=== PATIENT | female | born 1950 | race Caucasian/White ===

== ENCOUNTER → 2019-05-18 | Outpatient (CLI) | payer MEDICARE, MEDICAID, SELFPAY | PROVIDERS: Family Provider Nurse Practitioner Family; Visit Provider Surgery | DX: R10.13 Epigastric pain (principal) | CPT/HCPCS: 78227; A9537 ==

== ENCOUNTER 2019-05-31 14:28 | Outpatient (CLI) | payer MEDICARE, MEDICAID, SELFPAY ==
--- NOTE | 2019-05-31 14:34 | XR_ITS ---
WS: [id number] LATERAL LUMBAR SPINE: 3 view. Lateral radiographs are performed in upright neutral, flexion and extension to the patient's toleranc e. HISTORY: low back pain COMPARISON: 09/26/2007 Posterior lumbar alignment is normal. Moderate disc space narrowing and desiccation at L4-5 and L5-S1 . No fracture. With flexion and extension no instability. No lumbar spine instability. XR/XR lumbar spine f/e only [id number] IMPRESSION:
== END 2019-05-31 14:29 | disposition home or self-care (01) ==
LOC: WPI 14:33
PROVIDERS: Family Provider Nurse Practitioner Family; PCP Nurse Practitioner Family; Referring Provider Nurse Practitioner Family; Visit Provider Licensed Practical Nurse
DX: M54.5 Low back pain (principal)
CPT/HCPCS: 72120

== ENCOUNTER 2019-06-04 06:00 | Outpatient (RCR) | payer MEDICARE, MEDICAID, SELFPAY | END 2019-06-22 23:59 | disposition home or self-care (01) | LOC: WPT 06:00 | PROVIDERS: Family Provider Nurse Practitioner Family; PCP Nurse Practitioner Family; Referring Provider Licensed Practical Nurse; Visit Provider Licensed Practical Nurse | DX: M51.17 Intervertebral disc disorders with radiculopathy, lumbosacral region (principal) | CPT/HCPCS: 97110; 97112; 97140; 97161 ==

== ENCOUNTER → 2019-06-12 10:54 | Outpatient (BNVA) | payer MEDICARE, MEDICAID, SELFPAY | PROVIDERS: Family Provider Nurse Practitioner Family; PCP Nurse Practitioner Family; Referring Provider Licensed Practical Nurse; Visit Provider Psychiatry & Neurology Neurology | DX: G62.9 Polyneuropathy, unspecified (principal) | CPT/HCPCS: 95886; 95909 ==

== ENCOUNTER → 2019-06-18 15:12 | Outpatient (BNVA) | payer MEDICARE, MEDICAID, SELFPAY | PROVIDERS: Family Provider Nurse Practitioner Family; PCP Nurse Practitioner Family; Visit Provider Internal Medicine Rheumatology | DX: M15.4 Erosive (osteo)arthritis (principal) | CPT/HCPCS: 36415; 80053 ==

== ENCOUNTER → 2019-06-19 11:43 | Outpatient (BNVA) | payer MEDICARE, MEDICAID, SELFPAY | PROVIDERS: Family Provider Nurse Practitioner Family; PCP Nurse Practitioner Family; Visit Provider Internal Medicine Rheumatology | DX: M15.4 Erosive (osteo)arthritis (principal) | CPT/HCPCS: 85025 ==

== ENCOUNTER 2019-06-23 06:00 | Outpatient (RCR) | payer MEDICARE, MEDICAID, SELFPAY | END 2019-07-21 23:59 | disposition home or self-care (01) | LOC: WPT 06:00 | PROVIDERS: Family Provider Nurse Practitioner Family; PCP Nurse Practitioner Family; Referring Provider Licensed Practical Nurse; Visit Provider Licensed Practical Nurse | DX: M54.5 Low back pain (principal) | CPT/HCPCS: 97110; 97112 ==

== ENCOUNTER → 2019-07-17 08:57 | Outpatient (BNVA) | payer BC, MEDICAID, SELFPAY | PROVIDERS: Family Provider Nurse Practitioner Family; PCP Nurse Practitioner Family; Visit Provider Internal Medicine Rheumatology | DX: M19.041 Primary osteoarthritis, right hand (principal); M81.0 Age-related osteoporosis without current pathological fracture; M17.11 Unilateral primary osteoarthritis, right knee; Z79.899 Other long term (current) drug therapy; M19.042 Primary osteoarthritis, left hand; M79.7 Fibromyalgia | CPT/HCPCS: 99214 ==

== ENCOUNTER 2019-07-26 10:50 | Outpatient (CLI) | payer MEDICARE, MEDICAID, SELFPAY ==
--- NOTE | 2019-07-26 11:01 | XR_ITS ---
WS: [id number] SCREENING DEXA SCAN [facility] CLINICAL INFORMATION: OSTEOPOROSIS COMPARISON: August 23, 2018 FINDINGS: The L1-L4 bone mineral density measures 0.860 g/cm2. This corresponds to a T score score of -2.7 and Z score of -0.8. Left femoral neck bone mineral density measures 0.750 g/cm2. This corresponds to a T score of -2.0 an d Z score of -0.5. Right femoral neck bone mineral density measures 0.675 g/cm2. This corresponds to a T score -2.6of an d Z score of -1.1. Mean femoral neck bone mineral density measures 0.713 g/cm2. This corresponds to a T score of -2.3 an d Z score of -0.8. XR/XR DEXA axial skeleton* [id number] IMPRESSION: Osteoporosis Patient's FRAX calculated 10 year probability for major osteoporotic fracture i s 23.8 % and osteoporotic hip fracture is 7.3%.
== END 2019-07-26 10:51 | disposition home or self-care (01) ==
LOC: RADWPI 10:57
PROVIDERS: Family Provider Nurse Practitioner Family; PCP Nurse Practitioner Family; Visit Provider Internal Medicine Rheumatology
DX: M51.17 Intervertebral disc disorders with radiculopathy, lumbosacral region (principal); M81.0 Age-related osteoporosis without current pathological fracture
CPT/HCPCS: 77080

== ENCOUNTER → 2019-08-27 11:14 | Outpatient (BNVA) | payer MEDICARE, MEDICAID, SELFPAY | PROVIDERS: Family Provider Nurse Practitioner Family; PCP Nurse Practitioner Family; Visit Provider Internal Medicine Rheumatology | DX: M15.4 Erosive (osteo)arthritis (principal); M81.0 Age-related osteoporosis without current pathological fracture; Z79.899 Other long term (current) drug therapy; Z51.81 Encounter for therapeutic drug level monitoring | CPT/HCPCS: 36415; 80076; 82310; 82565; 85025; 85651; 86140 ==

== ENCOUNTER → 2019-08-27 11:17 | Outpatient (BNVA) | payer MEDICARE, MEDICAID, SELFPAY | PROVIDERS: Family Provider Nurse Practitioner Family; PCP Nurse Practitioner Family; Visit Provider Internal Medicine Rheumatology | DX: M15.4 Erosive (osteo)arthritis (principal); M81.0 Age-related osteoporosis without current pathological fracture; Z51.81 Encounter for therapeutic drug level monitoring | CPT/HCPCS: 85025 ==

== ENCOUNTER → 2019-09-07 13:20 | Outpatient (BNVA) | payer MEDICARE, MEDICAID, SELFPAY | PROVIDERS: Family Provider Nurse Practitioner Family; PCP Nurse Practitioner Family; Referring Provider Specialist; Visit Provider Anesthesiology Pain Medicine | DX: M54.5 Low back pain (principal); G60.8 Other hereditary and idiopathic neuropathies; Z79.891 Long term (current) use of opiate analgesic | CPT/HCPCS: 99204; 99205 ==

== ENCOUNTER → 2019-09-25 11:41 | Outpatient (BNVA) | payer MEDICARE, MEDICAID, SELFPAY | PROVIDERS: Family Provider Nurse Practitioner Family; PCP Nurse Practitioner Family; Visit Provider Nurse Practitioner Family | DX: E53.9 Vitamin B deficiency, unspecified (principal); E53.8 Deficiency of other specified B group vitamins; E55.9 Vitamin D deficiency, unspecified | CPT/HCPCS: 82306; 82607; 82746; 84207 ==

== ENCOUNTER → 2019-11-20 10:06 | Outpatient (BNVA) | payer MEDICARE, SELFPAY | PROVIDERS: Family Provider Nurse Practitioner Family; PCP Nurse Practitioner Family; Visit Provider Nurse Practitioner Family | DX: M25.561 Pain in right knee (principal) | CPT/HCPCS: 73562 ==

== ENCOUNTER → 2020-02-26 11:30 | Outpatient (BNVA) | payer MEDICARE, OTHER, SELFPAY | PROVIDERS: Family Provider Nurse Practitioner Family; PCP Nurse Practitioner Family; Visit Provider Nurse Practitioner Family | DX: M19.011 Primary osteoarthritis, right shoulder (principal) | CPT/HCPCS: 73030 ==

== ENCOUNTER → 2020-03-05 11:42 | Outpatient (BNVA) | payer MEDICARE, OTHER, SELFPAY | PROVIDERS: Family Provider Nurse Practitioner Family; PCP Nurse Practitioner Family; Referring Provider Nurse Practitioner Family; Visit Provider Specialist | DX: M19.011 Primary osteoarthritis, right shoulder (principal); M25.561 Pain in right knee | CPT/HCPCS: 73560; 73565 ==

== ENCOUNTER 2020-03-13 11:28 | Outpatient (CLI) | payer MEDICARE, OTHER, SELFPAY ==
--- NOTE | 2020-03-13 11:45 | MR_ITS ---
WS: [id number] MRI RIGHT KNEE NONCONTRAST TECHNIQUE: Axial PD, coronal PD fat sat, coronal PD, sagittal PD, and sagittal PD fat-sat images obta ined. CLINICAL INFORMATION: M17.11 Unilateral primary osteoarthritis, right knee COMPARISON: None. FINDINGS: Distal quadriceps and patella tendons are intact. Hypertrophic patella. Normal PCL. Mild mucoid degen eration with chronic thinning involving the ACL which appears intact. Chronic thinning of the medial and lateral meniscus worse involving the lateral meniscus with [id number] articulation in the later al joint compartment. Mild subchondral cystic change and degenerative edema in the lateral joint comp artment. Hypertrophic changes along the joint line. Chronic intrasubstance signal abnormality medial meniscus with chronic thinning. Marked chronic thinning of the lateral meniscus with blunting of the anterior horn. No acute appearing meniscal tears. Advanced grade III chondromalacia patella worse involving the lateral patella facet. No significant s ubchondral edema. Normal popliteal fossa. Medial and lateral collateral ligaments appear intact. MR/MR knee RT wo con* [id number] IMPRESSION: 1. Thinning and mucoid degeneration involving the ACL which appears intact. No rmal PCL. 2. Moderate to advanced tricompartment arthritis with [id number] articulatio n in the lateral joint compartment. Marked chronic thinning of the lateral meni scus some of which may be due to postoperative meniscectomy 3. Chronic thinning of the medial meniscus. No acute appearing meniscal tears. 4. Subchondral cystic change with mild degenerative edema involving the latera l joint compartment. 5. Medial and lateral collateral ligaments appear intact. 6. Advanced grade III chondromalacia patella. No subchondral edema. Hypertroph ic patella.
== END 2020-03-13 11:29 | disposition home or self-care (01) ==
LOC: RADSHAW 11:34
PROVIDERS: PCP Nurse Practitioner Family; Visit Provider Specialist
DX: M17.11 Unilateral primary osteoarthritis, right knee (principal); M22.41 Chondromalacia patellae, right knee
CPT/HCPCS: 73721

== ENCOUNTER → 2020-06-17 14:38 | Outpatient (BNVA) | payer MEDICARE, OTHER, SELFPAY | PROVIDERS: PCP Nurse Practitioner Family; Visit Provider Internal Medicine | DX: M81.0 Age-related osteoporosis without current pathological fracture (principal) | CPT/HCPCS: 36415; 80053; 82306; 85025; 99213; 99214 ==

== ENCOUNTER 2020-08-04 13:40 | Outpatient (CLI) | payer MEDICARE, OTHER, SELFPAY ==
[2020-08-04] MEDS: denosumab 60 mg SDV SUBCUT (14:16)
== END 2020-08-04 13:41 | disposition home or self-care (01) ==
LOC: ONCMED 13:43
PROVIDERS: PCP Nurse Practitioner Family; Visit Provider Internal Medicine
DX: M81.0 Age-related osteoporosis without current pathological fracture (principal)
CPT/HCPCS: 96372; J0897

== ENCOUNTER 2021-02-05 10:04 | Outpatient (CLI) | payer MEDICARE, OTHER, SELFPAY ==
[2021-02-05 11:15] LABS: Albumin Level 4.2 g/dL (3.5-5.2); Calcium 8.2 mg/dL (8.5-10.5)
[2021-02-05 11:30] LABS: 25 Hydroxy Vitamin D 33 ng/mL (30-100)
== END 2021-02-05 10:05 | disposition home or self-care (01) ==
LOC: ONCMED 10:07
PROVIDERS: PCP Nurse Practitioner Family; Referring Provider Internal Medicine; Visit Provider Internal Medicine
DX: M81.0 Age-related osteoporosis without current pathological fracture (principal); Z79.899 Other long term (current) drug therapy
CPT/HCPCS: 36415; 82040; 82306; 82310; 82565

== ENCOUNTER 2021-02-11 06:00 | Outpatient (CLI) | payer MEDICARE, OTHER, SELFPAY ==
[2021-02-11 12:58] LABS: Basophils % 0.5 %; Eosinophils # 0.3 10^3/uL (0.0-0.8); Hematocrit 39.9 % (37.0-47.0); Hemoglobin 13.1 g/dL (11.5-15.3); Lymphocytes # 1.7 10^3/uL (0.8-4.8); Lymphocytes % 31.1 %; Mean Corpuscular HGB Conc 32.8 g/dL (30.0-36.0); Mean Corpuscular Hemoglobin 31.6 pg (28.0-34.0); Mean Corpuscular Volume 96.4 fl (81-99); Mean Platelet Volume 11.3 fL (7.4-10.4); Monocytes # 0.4 10^3/uL (0.2-0.9); Monocytes % 6.6 %; Neutrophils # 3.16 10^3/uL (1.8-7.7); Neutrophils % 56.6 %; Nucleated Red Blood Cells % 0 %; Platelet Count 196 10^3/cmm (130-400); Red Blood Count 4.14 10^6/uL (4.1-5.3); Red Cell Distribution Width 13.8 % (12.1-15.1); White Blood Count 5.6 10^3/uL (4.0-10.0)
[2021-02-11 14:03] LABS: Alanine Aminotransferase 13 U/L (0-33); Albumin Level 4.4 g/dL (3.5-5.2); Alkaline Phosphatase 78 IU/L (35-105); Anion Gap 13.2 (5-19); Aspartate Amino Transferase 21 U/L (0-32); Blood Urea Nitrogen 17 mg/dL (8-23); Calcium 8.8 mg/dL (8.5-10.5); Carbon Dioxide 27 mmol/L (22-29); Chloride 102 mmol/L (98-107); Globulin 2.3 g/dL (1.3-4.6); Glucose 93 mg/dL (65-115); Osmolality Calculated 287 mOsm/kg (285-295); Potassium 4.2 mmol/L (3.5-5.1); Sodium 138 mmol/L (136-145); Total Bilirubin 0.3 mg/dL (0.15-1.2); Total Protein 6.7 g/dL (6.6-8.7)
[2021-02-11 14:19] LABS: 25 Hydroxy Vitamin D 43 ng/mL (30-100)
== END 2021-02-11 06:01 | disposition home or self-care (01) ==
PROVIDERS: PCP Nurse Practitioner Family; Referring Provider Internal Medicine; Visit Provider Internal Medicine
DX: D86.9 Sarcoidosis, unspecified (principal); M19.011 Primary osteoarthritis, right shoulder; M25.561 Pain in right knee; Z20.822 Contact with and (suspected) exposure to COVID-19
CPT/HCPCS: 80053; 82306; 85025; 87635

== ENCOUNTER 2021-02-16 11:18 | Observation (INO) | payer MEDICARE, OTHER, SELFPAY ==
[2021-02-11 11:48] VITALS: BMI 23.3
--- NOTE | 2021-02-11 16:09 | ANES.PREANE2 ---
Pre-Anesthetic Assessment Pre-Anesthetic Assessment: Height/Weight: Height 1.65 m Weight 63.503 kg Proposed Procedure: Operation Date: 02/16/21 12:00 Proposed Procedures p Total Knee Arthroplasty 98324 M17.11(Right) - Gonzalez Vergara MD Was Beta Brent taken within 24 hours: N/A Was Clonidine taken within 24 hours: N/A Social: Social History: No alcohol and No tobacco Exam: Pre-Anes Outpt Exam: alert, oriented x 3, clear to auscultation bilaterally and regular rate & rhythm Airway: Submandibular: WNL Cervical ROM: WNL MP: 2 Dentition: False and Partials CV/HEM: CV/HEM: HTN GI: GI: GERD Metabolic: Metabolic: Thyroid Musc/skel: Musc/skel: OA/DJD Neuropsych: Neuropsych: Anxiety and Neuropathy Anesthetic Plan: ASA status: 3 Anesthesia: Regional (specify below) (SAB with adductor blk) Risk of > 500 ml blood loss (7ml/kg in children): No PFSH Anesthesia PFSH: Medical History Dysphagia Environmental and seasonal allergies Erosive osteoarthritis Essential hypertension Fibromyalgia GERD (gastroesophageal reflux disease) Hiatal hernia Hypothyroidism Intervertebral disc disorder with radiculopathy of lumbosacral region Knee pain, right Low back pain, episodic Lumbar disc disorder Lumbar spondylosis Osteoarthritis of right knee Osteoarthritis of right shoulder Osteoporosis Palpitations Polyneuropathy, peripheral sensorimotor axonal Vitamin B 12 deficiency Surgical History History of appendectomy History of arthroplasty of right knee (~2013) History of colonoscopy (~2009) History of esophagogastroduodenoscopy (EGD) (~02/2019) Family History Sister Diabetes Hypertension Cancer Heart disease Hypercholesterolemia Hypothyroidism Mother Arthritis Hypothyroidism Grandmother Arthritis Denies family history of Anesthesia complication Bleeding disorder Social History Smoking and tobacco status: never smoked Alcohol intake: never Lives independently: Yes Marital status: / Current occupational status: retired History of recent travel: No Data Anesthesia Cardiac Studies: No Data to Display
[2021-02-16] VITALS (21 sets, daily range): BP systolic 107–166; BP diastolic 49–82; PULSE 50–95; RESP 13–19; TEMP 35.9–36.7; O2SAT 91–100
[2021-02-16] MEDS: sodium chloride 0.9% 1,000 ML 30 ML IV ×2 (07:57→12:23)
[2021-02-16] MEDS: acetaminophen 500 mg Tablet 1000 MG PO ×2 (08:08→14:59)
[2021-02-16] MEDS: CELEcoxib 200 mg Capsule 400 MG PO (08:08)
[2021-02-16] MEDS: oxyCODONE 20 mg ER (12 HR) Tablet PO (08:08)
[2021-02-16] MEDS: gabapentin 300 mg Capsule PO (08:08)
--- NOTE | 2021-02-16 08:46 | P.ANESUD_ITS ---
Pre-Anesthetic Update Pre-Anesthetic Assessment: Date of Surgery/Procedure: 02/16/21 Preop Gayle gnosis: Osteoarthritis Right knee Proposed Procedure: Operation Date: 02/16/21 09:35 Proposed Procedures p Total Knee Arthroplasty 12936 M17.11(Right) - Gonzalez Vergara MD Any changes to Pre-Anesthetic Assessment?: No Last Intake: Intake Last Liquid Date 02/15/21 Last Liquid Time 22:00 Last Solid Date 02/15/21 Last Solid Time 22:00 Vitals: Temperature 97.9 F 02/16/21 07:33 Temperature Source Temporal Artery S can 02/16/21 07:33 Pulse Rate 60 02/16/21 07:33 Respiratory Rate 18 02/16/21 07:33 Blood Pressure 166/82 02/16/21 07:33 Blood Pressure Dorys n 110 02/16/21 07:33 Pulse Oximetry 98 02/16/21 07:33 Oxygen Delivery Me thod 02/16/21 07:44 Exam: Pre-Anes Outpt Exam: alert, oriented x 3, clear to auscultation bilaterally and regular rate & rhythm Cardiac Studies: No Data to Display
--- NOTE | 2021-02-16 08:46 | ANES.PROC ---
Anesthesia Procedures Procedure/Date: 02/16/21 Nerve Block ^: Nerve Block 1: Main Anesthesia: general anesthesia Time Out Performed: Yes Consent: requested by attending/covering physician, from patient, risks and benefits reviewed and patient agrees to proceed Nerve block location: adductor canal (R) Anesthesia monitors applied: pulse oximetry, EKG, BP cuff and oxygen Nerve block position: supine Anesthetic Used: ropivicaine 0.5% and with decadron (4 mg) Amount of anesthesia used (mL): 30 Ultrasound used to: recognize landmarks and visualize and ID femerol nerve Nerve Stimulator Used?: No Interscalene/Femoral BLK: 4 stimuplex 21 g needle used for position and inplane approach, visualize local anesthetic spread and no vascular puncture identified Injection: neg aspiration of heme and paresthesia +/- Patient Tolerated Procedure: well and no complications Complications: none
--- NOTE | 2021-02-16 09:20 | W.PM.OPSFHP ---
Same Day Surgery H&P Indication for Procedure/HPI DATE OF PROCEDURE: February 16, 2021 CHIEF COMPLAINT/INDICATIONFOR SURGICAL PROCEDURE: 70-year-old with osteoarthritis right knee and progressive valgus deformity here for right total knee arthroplasty PREOP DIAGNOSIS: Osteoarthritis Right knee PLANNED PROCEDRUE: Operation Date: 02/16/21 09:35 Proposed Procedures p Total Knee Arthroplasty 41001 M17.11(Right) - Gonzalez Vergara MD Medications/Allergies* Home Medications Medication Instructions Recorded Confirmed Type acetaminophen 500 mg tablet 500 mg PO Q4H PRN 05/30/19 02/16/21 History bisacodyl 5 mg tablet,delayed 5 mg PO DAILY PRN tab 07/17/19 02/16/21 History release cholecalciferol (vitamin D3) 25 25 mcg PO DAILY 11/27/20 02/16/21 History mcg (1,000 unit) capsule Allergies/Adverse Reactions Allergy/AdvReac Type Severity Reaction Status Date / Time ciprofloxacin [From Cipro] Allergy Severe Leg cramps Verified 02/10/21 10:09 codeine Allergy Severe Headache Verified 02/10/21 10:09 lubiprostone [From Amitiza] Allergy Intermediate Low blood Verified 02/10/21 10:09 pressure pregabalin [From Lyrica] Allergy ADR-Halluci Verified 02/11/21 11:57 nating tramadol Allergy ADR-Itching Verified 02/10/21 10:09 Current Medications: Generic Name Dose Route Start Last Admin Trade Name Freq PRN Reason Stop Dose Admin Sodium Chloride 1,000 mls @ 30 mls/hr 02/16/21 07:30 02/16/21 07:57 Sodium Chloride 0.9% IV 02/17/21 07:29 30 mls/hr .Q24H FARHAN Administration Pertinent History/Comorbid Conditions* Medical History (Updated 03/06/20 @ 09:45 by Berta Garcia MD) Dysphagia Environmental and seasonal allergies Erosive osteoarthritis Essential hypertension Fibromyalgia GERD (gastroesophageal reflux disease) Hiatal hernia Hypothyroidism Intervertebral disc disorder with radiculopathy of lumbosacral region Knee pain, right Low back pain, episodic Lumbar disc disorder Lumbar spondylosis Osteoarthritis of right knee Osteoarthritis of right shoulder Osteoporosis Palpitations Polyneuropathy, peripheral sensorimotor axonal Vitamin B 12 deficiency Surgical History (Updated 06/11/19 @ 15:15 by Alvaro Saldaña MD) History of appendectomy History of arthroplasty of right knee (~2013) History of colonoscopy (~2009) History of esophagogastroduodenoscopy (EGD) (~02/2019) Family History (Updated 05/30/19 @ 15:40 by Jaida Tapia LPN) Diabetes Sister Arthritis Mother Grandmother Heart disease Sister Hypercholesterolemia Sister Hypothyroidism Sister Mother Cancer Sister Hypertension Sister Denies family history of Anesthesia complication Bleeding disorder Social History Smoking and tobacco status: never smoked Alcohol intake: never Lives independently: Yes Marital status: / Current occupational status: retired History of recent travel: No Pertinent Exam Findings alert, oriented x 3, clear to auscultation bilaterally, regular rate & rhythm and operative site marked Recommendations Surgery/Procedure today Coding Level of Care Code Acute [employer] Techn[employer] for Ozzy Thorpe
[2021-02-16] MEDS: EPINEPHrine 1 mg/mL INJ XX (10:23)
[2021-02-16] MEDS: ketorolac 30 mg/mL INJ IM (10:23)
[2021-02-16] MEDS: tranexamic acid 1,000 mg/10mL SDV 1000 MG IRRIGATION (10:23)
--- NOTE | 2021-02-16 11:38 | XR_ITS ---
WS: [id number] Exam: XR knee RT 1-2V 94320 Date/Time of Exam: 02/16/2021 11:54 AM Reason For Exam: Right Total Knee arthroplasty Comparison 03/05/2020. A total knee prosthesis is in place in excellent position. Postoperative changes in the adjacent soft tissues. XR/XR knee RT 1-2V 81033 IMPRESSION: 1. Total knee replacement in excellent position.
--- NOTE | 2021-02-16 11:43 | P.OP_ITS ---
Operative Report Date of procedure: February 16, 2021 Pre-op Diagnosis: Osteoarthritis Right knee Post-op diagnosis: same Post-op Findings: Same Procedure Done: Right total knee arthroplasty Implants: Courtenay total knee arthroplasty components were used includin) Size 5 triathalon cruciate retaining femoral component 2) Size 5 Tritanium tibial component 3) 32 mm /9 mm thickness Tritanium asymetric patella 4) Size 5/10 mm thickness CR tibial bearing insert Pathology: none sent Anesthesia: Nerve Block (Adductor canal block, spinal) Estimated blood loss (mL): 100 Complications: None Findings: The patient had eburnated bone over the lateral and near full- thickness cartilage loss posterior to the patella Condition: stable Disposition: PACU Procedure: The patient was taken to the operating room. Patient was given 1 g of tranexamic acid . The above anesthesia provided by the anesthesia service. A timeout was performed. The patient was prepped and draped in the usual fashion with the lower extremity exposed. A anterior incision was made, midline, from a point proximal to the patella to the distal tibial tubercle. The knee was entered through a medial parapatellar approach. The patella could be displaced laterally and the knee flexed. The patellar fat pad was resected to provide better visibility. Retractors were placed medially and laterally adjacent to the tibial plateau. The femoral canal was drilled in line with the longitudinal axis of the femur. Intramedullary femoral guide for used to make a distal femoral cut in 5 degrees of valgus, resecting 8 mm from the more prominent condyle. Next the extra medullary tibial guide was placed in alignment with the longitudinal axis of the tibia. The cutting guides were set to remove just over 9 mm from the high tibial plateau. The proximal tibia was then cut. The femoral measuring guide was then placed over the distal femur. Rotation was verified checking the relationship of the guide to the condyle and the trochlear groove. The femur was measured and cut for the desired femoral component. The desired tibial baseplate was then chosen. A trial reduction with the femur tibial baseplate and polyethylene was done, assuring that the knee was stable throughout full motion. Ligament balancing no releases other than a typical release of the deep medial collateral ligament.The tibia was prepared for the tibial baseplate. Patellar thickness was then measured. The patella was cut removing articular cartilage and prepared for appropriate size patellar button. surfaces were cleaned with a gentamicin/tranexamic acid solution. The femur tibia and patella were then press-fit into place. The posterior capsule and collateral ligaments were then injected with a solution of 100 mL of 0.2% ropivacaine, 1 mL of a 1:1000 epinephrine solution, 30 mg of Toradol, and 1 g of tranexamic acid. final polyethylene component was then snapped into place into the tibia. The extensor retinaculum was closed with a running 1 Stratafix.. The subcutaneous tissues were closed with 2-0 Vicryl and the skin was closed with a running 4-0 Stratafix. The wound was covered with a Dermabond Prinio dressing. It was covered with 4xrs and a compressive Tubigauae was applied. The patient was taken to recovery room in stable condition.
[2021-02-16] MEDS: fentaNYL 50 mcg/mL INJ 2mL IVP (11:44)
--- NOTE | 2021-02-16 11:51 | SUR.PHASEI ---
PT AWAKE ALERT C/O OF TOP OF RT KNEE PAIN SEE MED GIVEN PT ON RA VSS DRESSING D/I DISTAL PULSE MARKED STRONG AND REGULAR, VSS IV PATENT.
--- NOTE | 2021-02-16 12:29 | PC.NURSE ---
Patient came up from surgery with 3 visitors. I called and spoke with Dr. Vergara and asked if he had granted permission for additional visitors and he stated no. I went and spoke with the family and discussed the visitor policy with them and informed them that I will allow the 3 of them to stay for around 30 minutes, but then it needs to be 1 visitor until 1999. Patient's daughter states that patient's has Alzheimers and that's why both of them are with him. I verbalized understanding and informed her that one of them could stay with him if he would want to stay after 30 minutes. She verbalizes understanding.
[2021-02-16] MEDS: oxyCODONE 5 mg IR Tab/Cap PO ×2 (13:03→18:15)
[2021-02-16] MEDS: sodium chloride 0.9% 1,000 ML 100 ML IV (13:34)
--- NOTE | 2021-02-16 16:27 | PM.DCS ---
Discharge Providers Date of Admission: 02/16/21 11:18 Date of Discharge: February 16, 2021 Attending Provider at Admission: Gonzalez Vergara MD Attending Provider at Discharge: Gonzalez Vergara MD Primary Care Provider: JARED Perry Diagnoses at Discharge Discharge Diagnosis (1) Status post right knee replacement: Status: Acute (2) Osteoarthritis of right knee: Status: Resolved Qualifiers: Osteoarthritis type: primary Qualified Code(s): M17.11 - Unilateral primary osteoarthritis, right knee Reason for Visit Reason for Visit: total knee arthorplasty Hospital Course Hospital Course The patient tolerated surgery well. They remained hemodynamically stable. They was begun on aspirin and foot pumps for DVT prophylaxis. The patient was mobilized with therapy beginning the day of surgery and by the afternoon of the postoperative day independent with the walker. As the pain was adequately controlled and they were fully mobile they were discharged home. Physical Exam Narrative: EXAM NARRATIVE: On the day of discharge his knee incision was clean. They had no drainage. There is minimal swelling in the thigh and knee and the calf. No distal neurovascular deficits were noted Discharge Data Data Completed and Pending: Completed Studies During Hospitalization Category Date Time Status XR knee RT 1-2V 7 3560 Routine Exams 02/16/21 11:38 Completed Pending at discharge Category Date Time Status Hemoglobin AM LAB S Lab 02/17/21 04:00 Ordered Vitals: Last Vital Signs Temp 96.7 F L 02/16/21 14:49 Pulse 54 L 02/16/21 14:49 Resp 16 02/16/21 14:49 BP 127/69 02/16/21 14:49 Pulse Ox 98 02/16/21 14:49 Discharge Plan Discharge Patient Disposition: Home Condition: Stable Prescriptions: New oxycodone 5 mg Tablet 5 mg PO Q4H PRN (Reason: Moderate Pain) 7 Days Qty: 40 RF: 0 acetaminophen 500 mg Tablet 1,000 mg PO Q8H 14 Days Qty: 84 RF: 0 celecoxib 200 mg Capsule 200 mg PO Q12H 14 Days Qty: 28 RF: 0 Continued fluticasone propionate [Flonase Allergy Relief] 50 mcg/actuation spray,suspension 1 spray INTRANASAL BID 30 Days Qty: 16 RF: 0 cholecalciferol (vitamin D3) 25 mcg (1,000 unit) capsule 25 mcg PO DAILY RF: 0 bisacodyl [Dulcolax (bisacodyl)] 5 mg tablet,delayed release (DR/EC) 5 mg PO DAILY PRN (Reason: Constipation) RF: 0 Prolia 60 mg/mL syringe 60 mg SUBCUT ONCE Qty: 1 RF: 0 lorazepam 0.5 mg tablet 0.5 mg PO .at hs PRN (Reason: anxiety) 90 Days Qty: 90 RF: 0 Dexilant 60 mg capsule,biphase delayed releas 60 mg PO DAILY 90 Days Qty: 90 RF: 1 celecoxib [Celebrex] 100 mg capsule 100 mg PO BID 90 Days Qty: 180 RF: 1 amlodipine 5 mg tablet See Rx Instructions .ROUTE .COMPLEX Qty: 60 RF: 2 levothyroxine 75 mcg tablet See Rx Instructions .ROUTE .COMPLEX Qty: 30 RF: 2 losartan 50 mg tablet See Rx Instructions .ROUTE .COMPLEX Qty: 60 RF: 2 calcium carbonate 390 mg calcium (1,000 mg) tablet 390 mg PO TID Qty: 90 RF: 0 Discontinued acetaminophen [Tylenol Extra Strength] 500 mg tablet 500 mg PO Q4H PRN (Reason: Pain) RF: 0 diclofenac sodium 1 % gel See Rx Instructions .ROUTE .COMPLEX Qty: 100 RF: 2 mupirocin 2 % ointment 1 applic topical BID Qty: 15 RF: 0 Discharge Orders: Discharge Order (Routine); Ordered 02/16/21 Ordered By: Gonzalez Vergara Other Ambulatory Orders: DME: [facility] (Order) Location: None Selected Ordered By: Gonzalez Vergara Discharge Diet: Advance as tolerated Discharge Activity: Limit activity as instructed Patient Instructions: Opioid Safety Activity Restrictions/Additional Instructions: Okay to shower. Leave dressing in place Keep Tubigauze sleeve in place for swelling. Okay to remove for hygiene. Apply FirstIce up to 20 min/hr for pain and swelling Take Celebrex twice a day for the next 15 days for pain , discontinue other anti-inflammatories Take Tylenol 500mg (1-2 tabs) as needed 3 times a day for mild pain take oxycodone for breakthrough pain. Exercises per physical therapy. May weight-bear as tolerated on total knee arthroplasty Discharge Attestations Time Spent in Discharge Care*: other Quality Metrics Clinical Quality Measures During this hospital stay, did patient experience: None Coding Level of Care Code Acute [facility] note Diagnoses Status post right knee replacement Z96.651 Osteoarthritis of right knee M17.11 Osteoarthritis type: primary
--- NOTE | 2021-02-16 16:35 | ANE.PACU2 ---
Inpatient post-anesthesia follow up: Airway intact: Yes Vital signs: Temperature 96.7 F Pulse Rate 54 Respiratory Rate 16 Blood Pressure 127/69 Pulse Oximetry 98 Oxygen Delivery Me thod Room Air Oxygen Flow Rate 8 Fraction of Inspir ed Oxygen Hydration adequate: Yes Nausea and vomiting: No Pain level: 3 Mental status: Baseline
--- NOTE | 2021-02-16 19:30 | PC.NURSE ---
IV removed at this time and patient tolerated well. Patient is A&Ox3. Respirations are even non-labored on room air. Reviewed discharge with patient at this time. Patient pain medications was picked up by patient's granddaughter and brought to here. Patient verbalized understanding of discharge instructions and follow up appointments. Patient wheel chaired to private car at this time.
--- NOTE | 2021-02-17 08:10 | PC.OT ---
patient discharged before seen by OT
--- NOTE | 2021-02-18 08:30 | PC.SOCIAL ---
discharge follow up call made, spoke with patient. patient reports she is having a lot of pain but she is managing. pt is using walker for ambulation. patient is taking medications as prescribed. using ice and elevating. pt is aware of follow up appointment with Dr. Vergara tomorrow and has transportation. patient denies questions or concerns.
== END 2021-02-16 19:30 | disposition home or self-care (01) ==
LOC: MEDSURG 11:18
PROVIDERS: Admitting Provider Orthopaedic Surgery; PCP Nurse Practitioner Family; Visit Provider Orthopaedic Surgery
PROC: (CPT 27447; principal; 2021-02-16 09:15)
DX: M17.11 Unilateral primary osteoarthritis, right knee (principal); I10 Essential (primary) hypertension; M79.7 Fibromyalgia; K21.9 Gastro-esophageal reflux disease without esophagitis; E03.9 Hypothyroidism, unspecified; M81.0 Age-related osteoporosis without current pathological fracture; Z82.49 Family history of ischemic heart disease and other diseases of the circulatory system; Z83.3 Family history of diabetes mellitus
CPT/HCPCS: 27447; 64447; 73560; 76942; 97161; 97530; C1776; G0378; J0171; J0690; J1100; J1580; J1885; J2370; J2704; J2795; J3010; J3490; J7030

== ENCOUNTER → 2021-03-04 13:54 | Outpatient (BNVA) | payer MEDICARE, OTHER, SELFPAY | PROVIDERS: PCP Nurse Practitioner Family; Visit Provider Internal Medicine | DX: M81.0 Age-related osteoporosis without current pathological fracture (principal) | CPT/HCPCS: 99214 ==

== ENCOUNTER 2021-03-12 11:05 | Outpatient (CLI) | payer MEDICARE, OTHER, SELFPAY ==
[2021-03-12 11:59] LABS: Albumin Level 4.6 g/dL (3.5-5.2); Calcium 8.9 mg/dL (8.5-10.5)
[2021-03-12 12:26] VITALS: BP 140/83; PULSE 75; RESP 18; TEMP 37.1; O2SAT 98
[2021-03-12] MEDS: denosumab 60 mg SDV SUBCUT (12:37)
[2021-03-12 12:44] VITALS: BP 154/90; PULSE 77; RESP 18; TEMP 37.2; O2SAT 100
[2021-03-12 14:03] LABS: 25 Hydroxy Vitamin D 36 ng/mL (30-100)
== END 2021-03-12 11:06 | disposition home or self-care (01) ==
LOC: ONCMED 11:10
PROVIDERS: PCP Nurse Practitioner Family; Referring Provider Internal Medicine; Visit Provider Internal Medicine
DX: M81.0 Age-related osteoporosis without current pathological fracture (principal); Z79.899 Other long term (current) drug therapy
CPT/HCPCS: 36415; 82040; 82306; 82310; 82565; 96372; J0897

== ENCOUNTER → 2021-03-18 13:38 | Outpatient (BNVA) | payer MEDICARE, OTHER, SELFPAY | PROVIDERS: PCP Nurse Practitioner Family; Visit Provider Orthopaedic Surgery | DX: Z96.651 Presence of right artificial knee joint (principal) | CPT/HCPCS: 73560; 73565 ==

== ENCOUNTER → 2021-04-01 08:04 | Outpatient (BNVA) | payer MEDICARE, OTHER, SELFPAY | PROVIDERS: PCP Nurse Practitioner Family; Visit Provider Nurse Practitioner Family | DX: I10 Essential (primary) hypertension (principal); D64.9 Anemia, unspecified; E03.9 Hypothyroidism, unspecified; Z13.6 Encounter for screening for cardiovascular disorders; Z79.899 Other long term (current) drug therapy | CPT/HCPCS: 80053; 80061; 81003; 82607; 82728; 82746; 83036; 83550; 83921; 84443; 85025; 87077; 87086; 87184 ==

== ENCOUNTER 2021-05-08 10:46 | Outpatient (CLI) | payer MEDICARE, OTHER, SELFPAY ==
--- NOTE | 2021-05-08 11:15 | XR_ITS ---
WS: [id number] Right hip, AP and frog leg views, 05/08/2021 Clinical Data: M25.551 - Pain in right hip Comparison: None. Findings: No fractures or dislocations are seen. The hip joint is intact. The soft tissues are not remarkable. The adjacent pelvis is normal. XR/XR hip RT 2-3V wo/w pel* [id number] Impression: Negative right hip. Tonnis classification: grade 0: normal radiographs
--- NOTE | 2021-05-08 11:30 | XR_ITS ---
WS: [id number] Lumbar spine, AP, L5-S1 spot, lateral and flexion, extension and neutral position, both obliques, Clinical Data: M51.17 - Intervertebral disc disorders with radiculopathy... Comparison: Lateral lumbar spine, 05/31/2019 Findings: No compression fractures or subluxation is seen. There is degenerative disc narrowing at L4-L5 and L5 -S1. The transverse processes and SI joints are normal. On flexion and extension there is no limitation of motion or subluxation. The oblique films show no s pondylolysis. There is calcification of the wall of the abdominal aorta but no aneurysm. XR/XR lumbar spine 6V w f/e [id number] Impression: 1. Degenerative disc narrowing at L4-L5 and L5-S1. 2. Negative for limitation of motion or subluxation on flexion or extension.
== END 2021-05-08 10:47 | disposition home or self-care (01) ==
PROVIDERS: PCP Nurse Practitioner Family; Visit Provider Nurse Practitioner Family
DX: M25.551 Pain in right hip (principal)
CPT/HCPCS: 72114; 73502

== ENCOUNTER → 2021-05-13 09:11 | Outpatient (BNVA) | payer MEDICARE, OTHER, SELFPAY | PROVIDERS: PCP Nurse Practitioner Family; Visit Provider Orthopaedic Surgery | DX: Z96.651 Presence of right artificial knee joint (principal) | CPT/HCPCS: 73560; 73565 ==

== ENCOUNTER 2021-05-19 09:01 | Outpatient (CLI) | payer MEDICARE, OTHER, SELFPAY ==
--- NOTE | 2021-05-19 10:30 | MM_ITS ---
WS: [id number] Bilateral screening digital mammogram, 05/19/2021 Clinical Data: Z12.31 - Encounter for screening mammogram for malignant ... Comparison: 10/25/2018, 10/14/2016, 09/05/2014, 09/06/2013. Findings: The breast parenchymal pattern shows labral glandular tissue No spiculated masses or clustered calcif ications are seen. There are no secondary signs of carcinoma. MM/[place] [id number] Impression: 1. Negative bilateral mammogram unchanged. 2. Recommend annual screening mammograms. BIRADS: 1-Negative FOLLOW UP: 1 Year Follow-up The CAD loom stop checker was used.
== END 2021-05-19 09:02 | disposition home or self-care (01) ==
LOC: RADSHAW 09:04
PROVIDERS: PCP Nurse Practitioner Family; Visit Provider Nurse Practitioner Family
DX: Z12.31 Encounter for screening mammogram for malignant neoplasm of breast (principal)
CPT/HCPCS: 77067

== ENCOUNTER → 2021-06-02 13:04 | Outpatient (BNVA) | payer MEDICARE, OTHER, SELFPAY | PROVIDERS: PCP Nurse Practitioner Family; Visit Provider Internal Medicine | DX: M81.0 Age-related osteoporosis without current pathological fracture (principal); M54.50 Low back pain, unspecified; D75.89 Other specified diseases of blood and blood-forming organs; Z79.899 Other long term (current) drug therapy; Z51.81 Encounter for therapeutic drug level monitoring | CPT/HCPCS: 99214 ==

== ENCOUNTER → 2021-07-24 10:46 | Outpatient (BNVA) | payer MEDICARE, OTHER, SELFPAY | PROVIDERS: PCP Nurse Practitioner Family; Visit Provider Internal Medicine | DX: I10 Essential (primary) hypertension (principal) | CPT/HCPCS: 99213 ==

== ENCOUNTER 2021-08-10 12:41 | Outpatient (CLI) | payer MEDICARE, OTHER, SELFPAY ==
--- NOTE | 2021-08-10 14:15 | XR_ITS ---
WS: [id number] SCREENING DEXA SCAN [facility] CLINICAL INFORMATION: M54.50 - Low back pain, unspecifie 6 d COMPARISON: July 26, 2019 FINDINGS: The L1-L4 bone mineral density measures 0.898 g/cm2. This corresponds to a T score score of -2.3 and Z score of -0.7. Left femoral neck bone mineral density measures 0.725 g/cm2. This corresponds to a T score of -2.2 an d Z score of -0.7. Right femoral neck bone mineral density measures 0.706 g/cm2. This corresponds to a T score -2.4of an d Z score of -0.9. Mean femoral neck bone mineral density measures 0.715 g/cm2. This corresponds to a T score of -2.3 an d Z score of -0.8. XR/XR DEXA axial skeleton* [id number] IMPRESSION: Osteopenia in the lumbar spine and femoral necks at the upper end of the range Patient's FRAX calculated 10 year probability for major osteoporotic fracture i s 19.3 % and osteoporotic hip fracture is 4.1%.
== END 2021-08-10 12:42 | disposition home or self-care (01) ==
LOC: RAD 12:42
PROVIDERS: PCP Nurse Practitioner Family; Visit Provider Internal Medicine
DX: M81.0 Age-related osteoporosis without current pathological fracture (principal); M54.50 Low back pain, unspecified; M85.88 Other specified disorders of bone density and structure, other site
CPT/HCPCS: 77080

== ENCOUNTER 2021-09-02 08:36 | Day surgery (SDC) | payer MEDICARE, OTHER, SELFPAY ==
[2021-08-31 09:57] VITALS: BMI 23.3
--- NOTE | 2021-09-02 09:20 | P.ANESASSM_ITS ---
Pre-Anesthetic Assessment Height/Weight: Height 1.68 m Weight 65.771 kg Preop Diagnosis: diagnostic Operation Date: 09/02/21 10:30 Proposed Procedures p Colonoscopy 83770/z12.11(Not Applicable) - Haroon العلي MD Familial anesthetic complications: None Was Beta Brent taken within 24 hours: N/A Was Clonidine taken within 24 hours: N/A Social No alcohol and No tobacco Exam alert, oriented x 3, clear to auscultation bilaterally and regular rate & rhythm Airway Submandibular: within normal limits Cervical ROM: within normal limits Mallampati: Class I Dentition: false and partials CV/HEM Anemia and Hypertension GI Gastroesophageal Reflux Disease Metabolic Thyroid Disease [facility] [place] Fibromyalgia, Lower Back Pain and Osteoarthritis/DJD Neuropsych Anxiety Anesthetic Plan ASA status: 2 Anesthesia: MAC Medications/Allergies Home Medications Medication Instructions Recorded Confirmed Last Taken Type bisacodyl 5 mg tablet,delayed 5 mg PO DAILY PRN tab 07/17/19 08/31/21 02/15/21 History release (Dulcolax (bisacodyl)) denosumab 60 mg/mL subcutaneous 60 mg SUBCUT ONCE #1 ml 06/17/20 08/31/21 02/15/21 Rx syringe (Prolia) acetaminophen 500 mg tablet 500 mg PO Q6H PRN 05/05/21 08/31/21 Unknown History (Tylenol Extra Strength) lorazepam 0.5 mg tablet 0.5 mg PO .at hs PRN 90 Days #90 07/31/21 08/31/21 Unknown Rx tab ascorbate calcium (vitamin C) 500 500 mg PO DAILY 08/11/21 08/31/21 Unknown History mg tablet cholecalciferol (vitamin D3) 25 25 mcg PO DAILY #90 cap 08/11/21 08/31/21 Unknown Rx mcg (1,000 unit) capsule amlodipine 5 mg tablet 5 mg PO BID 08/31/21 08/31/21 Unknown History celecoxib 100 mg capsule (Celebrex) 100 mg PO BID 08/31/21 08/31/21 Unknown History dexlansoprazole 60 mg 60 mg PO DAILY 08/31/21 08/31/21 Unknown History capsule,biphase delayed release (Dexilant) levothyroxine 75 mcg tablet 75 mcg PO DAILY 08/31/21 08/31/21 Unknown History losartan 50 mg tablet 50 mg PO BID 08/31/21 08/31/21 Unknown History Allergies Allergy/AdvReac Type Severity Reaction Status Date / Time ciprofloxacin [From Cipro] Allergy Severe Leg cramps Verified 08/11/21 09:14 codeine Allergy Severe Headache Verified 08/11/21 09:14 lubiprostone [From Amitiza] Allergy Intermediate Low blood Verified 08/11/21 09:14 pressure pregabalin [From Lyrica] Allergy ADR-Halluci Verified 08/11/21 09:14 nating tramadol Allergy ADR-Itching Verified 08/11/21 09:14 [facility] Anesthesia Medical History (Updated 08/17/21 @ 20:19 by JARED Arreaga) Acute UTI Anemia Breast cancer screening by mammogram Colon cancer screening Dysphagia Environmental and seasonal allergies Erosive osteoarthritis Essential hypertension Fibromyalgia GERD (gastroesophageal reflux disease) Hiatal hernia Hypertension screen Hypothyroidism Intervertebral disc disorder with radiculopathy of lumbosacral region Knee pain, right Low back pain, episodic Lumbar disc disorder Lumbar spondylosis Medication management (~08/2020) Osteoarthritis of right knee Osteoarthritis of right shoulder Osteoporosis Palpitations Polyneuropathy, peripheral sensorimotor axonal Right hip pain Vitamin B 12 deficiency Vitamin D deficiency Surgical History History of appendectomy History of arthroplasty of right knee (~2013) History of colonoscopy (~2009) History of esophagogastroduodenoscopy (EGD) (~02/2019) Family History Sister Diabetes Hypertension Cancer Heart disease Hypercholesterolemia Hypothyroidism Mother Arthritis Hypothyroidism Grandmother Arthritis Denies family history of Anesthesia complication Bleeding disorder Social History Smoking and tobacco status: never smoked Alcohol intake: never Lives independently: Yes Marital status: / Current occupational status: retired History of recent travel: No Data Anesthesia Cardiac Studies: No Data to Display
[2021-09-02 09:22] VITALS: BP 132/69; PULSE 70; RESP 18; TEMP 36.6; O2SAT 96
[2021-09-02] MEDS: sodium chloride 0.9% 1,000 ML 30 ML IV (09:36)
--- NOTE | 2021-09-02 10:15 | P.HP_ITS ---
Same Day Surgery H&P Indication for Procedure/HPI DATE OF PROCEDURE: September 02, 2021 CHIEF COMPLAINT/INDICATIONFOR SURGICAL PROCEDURE: screening PREOP DIAGNOSIS: diagnostic PLANNED PROCEDURE: Operation Date: 09/02/21 10:30 Proposed Procedures p Colonoscopy 67098/z12.11(Not Applicable) - Haroon العلي MD Medications/Allergies* Home Medications Medication Instructions Recorded Confirmed Type bisacodyl 5 mg tablet,delayed 5 mg PO DAILY PRN tab 07/17/19 08/31/21 History release (Dulcolax (bisacodyl)) acetaminophen 500 mg tablet 500 mg PO Q6H PRN 05/05/21 08/31/21 History (Tylenol Extra Strength) ascorbate calcium (vitamin C) 500 500 mg PO DAILY 08/11/21 08/31/21 History mg tablet amlodipine 5 mg tablet 5 mg PO BID 08/31/21 08/31/21 History celecoxib 100 mg capsule (Celebrex) 100 mg PO BID 08/31/21 08/31/21 History dexlansoprazole 60 mg 60 mg PO DAILY 08/31/21 08/31/21 History capsule,biphase delayed release (Dexilant) levothyroxine 75 mcg tablet 75 mcg PO DAILY 08/31/21 08/31/21 History losartan 50 mg tablet 50 mg PO BID 08/31/21 08/31/21 History Allergies/Adverse Reactions Allergy/AdvReac Type Severity Reaction Status Date / Time ciprofloxacin [From Cipro] Allergy Severe Leg cramps Verified 08/11/21 09:14 codeine Allergy Severe Headache Verified 08/11/21 09:14 lubiprostone [From Amitiza] Allergy Intermediate Low blood Verified 08/11/21 09:14 pressure pregabalin [From Lyrica] Allergy ADR-Halluci Verified 08/11/21 09:14 nating tramadol Allergy ADR-Itching Verified 08/11/21 09:14 Current Medications: Generic Name Dose Route Start Last Admin Trade Name Freq PRN Reason Stop Dose Admin Sodium Chloride 1,000 mls @ 30 mls/hr 09/02/21 09:15 09/02/21 09:36 Sodium Chloride 0.9% IV 09/03/21 09:14 30 mls/hr .Q24H FARHAN Administration Pertinent History/Comorbid Conditions* Medical History (Updated 08/17/21 @ 20:19 by JARED Arreaga) Acute UTI Anemia Breast cancer screening by mammogram Colon cancer screening Dysphagia Environmental and seasonal allergies Erosive osteoarthritis Essential hypertension Fibromyalgia GERD (gastroesophageal reflux disease) Hiatal hernia Hypertension screen Hypothyroidism Intervertebral disc disorder with radiculopathy of lumbosacral region Knee pain, right Low back pain, episodic Lumbar disc disorder Lumbar spondylosis Medication management (~08/2020) Osteoarthritis of right knee Osteoarthritis of right shoulder Osteoporosis Palpitations Polyneuropathy, peripheral sensorimotor axonal Right hip pain Vitamin B 12 deficiency Vitamin D deficiency Surgical History (Updated 02/16/21 @ 16:25 by Gonzalez Vergara MD) History of appendectomy History of arthroplasty of right knee (~2013) History of colonoscopy (~2009) History of esophagogastroduodenoscopy (EGD) (~02/2019) Family History (Updated 05/30/19 @ 15:40 by Jaida Tapia LPN) Diabetes Sister Arthritis Mother Grandmother Heart disease Sister Hypercholesterolemia Sister Hypothyroidism Sister Mother Cancer Sister Hypertension Sister Denies family history of Anesthesia complication Bleeding disorder Social History Smoking and tobacco status: never smoked Alcohol intake: never Lives independently: Yes Marital status: / Current occupational status: retired History of recent travel: No Pertinent Exam Findings alert, oriented x 3 and regular rate & rhythm Recommendations Surgery/Procedure today Coding Level of Care Code Acute Technical Lead for Ozzy Thorpe
[2021-09-02 10:58] VITALS: BP 112/67; PULSE 60; RESP 16; TEMP 36.7; O2SAT 98
--- NOTE | 2021-09-02 11:01 | ANE.PACU2 ---
Inpatient post-anesthesia follow up: Airway intact: Yes Vital signs: Temperature 97.9 F Pulse Rate 70 Respiratory Rate 18 Blood Pressure 132/69 Pulse Oximetry 96 Oxygen Delivery Me thod Room Air Oxygen Flow Rate Fraction of Inspir ed Oxygen Hydration adequate: Yes Nausea and vomiting: No Pain level: 1 Mental status: Baseline
[2021-09-02 11:03] VITALS: BP 136/73; PULSE 65; RESP 18; O2SAT 95
== END 2021-09-02 11:30 | disposition home or self-care (01) ==
PROVIDERS: PCP Nurse Practitioner Family; Visit Provider Surgery
PROC: 0DJD8ZZ Inspection of Lower Intestinal Tract, Via Natural or Artificial Opening Endoscopic (ICD-10-PCS; CPT 45378; principal; 2021-09-02 10:30)
DX: Z12.11 Encounter for screening for malignant neoplasm of colon (principal); K57.30 Diverticulosis of large intestine without perforation or abscess without bleeding; K64.8 Other hemorrhoids; I10 Essential (primary) hypertension; M79.7 Fibromyalgia; K21.9 Gastro-esophageal reflux disease without esophagitis; E03.9 Hypothyroidism, unspecified; M81.0 Age-related osteoporosis without current pathological fracture
CPT/HCPCS: 45378; G0121; J2704; J7030

== ENCOUNTER → 2021-09-07 09:36 | Outpatient (BNVA) | payer MEDICARE, OTHER, SELFPAY | PROVIDERS: PCP Nurse Practitioner Family; Visit Provider Internal Medicine | DX: M54.50 Low back pain, unspecified (principal); Z79.899 Other long term (current) drug therapy | CPT/HCPCS: 80053; 85025; 85651 ==

== ENCOUNTER 2021-09-14 10:49 | Outpatient (CLI) | payer MEDICARE, OTHER, SELFPAY ==
[2021-09-14 11:50] LABS: Albumin Level 4.5 g/dL (3.5-5.2); Calcium 8.6 mg/dL (8.5-10.5)
[2021-09-14 12:05] LABS: 25 Hydroxy Vitamin D 39 ng/mL (30-100)
[2021-09-14 12:50] VITALS: BP 159/79; PULSE 72; RESP 18; TEMP 36.3; O2SAT 98
[2021-09-14] MEDS: denosumab 60 mg SDV SUBCUT (13:00)
[2021-09-14 13:06] VITALS: BP 169/81; PULSE 69; RESP 18; TEMP 36.3; O2SAT 99
== END 2021-09-14 10:50 | disposition home or self-care (01) ==
PROVIDERS: PCP Nurse Practitioner Family; Visit Provider Internal Medicine
DX: M81.0 Age-related osteoporosis without current pathological fracture (principal); E55.9 Vitamin D deficiency, unspecified; D64.9 Anemia, unspecified; Z79.899 Other long term (current) drug therapy
CPT/HCPCS: 36415; 82040; 82306; 82310; 82565; 96372; J0897

== ENCOUNTER → 2021-09-16 10:12 | Outpatient (BNVA) | payer MEDICARE, OTHER, SELFPAY | PROVIDERS: PCP Nurse Practitioner Family; Visit Provider Internal Medicine | DX: M15.4 Erosive (osteo)arthritis (principal); M81.0 Age-related osteoporosis without current pathological fracture; Z79.899 Other long term (current) drug therapy; Z87.891 Personal history of nicotine dependence | CPT/HCPCS: 84132; 99214 ==

== ENCOUNTER → 2022-01-26 08:16 | Outpatient (BNVA) | payer MEDICARE, OTHER, SELFPAY | PROVIDERS: PCP Nurse Practitioner; Visit Provider Nurse Practitioner | DX: E55.9 Vitamin D deficiency, unspecified (principal); E03.9 Hypothyroidism, unspecified; I10 Essential (primary) hypertension; Z13.6 Encounter for screening for cardiovascular disorders | CPT/HCPCS: 80053; 80061; 82306; 84443; 85025 ==

== ENCOUNTER → 2022-02-15 08:20 | Outpatient (BNVA) | payer MEDICARE, OTHER, SELFPAY | PROVIDERS: PCP Nurse Practitioner; Visit Provider Podiatrist Foot & Ankle Surgery | DX: M19.072 Primary osteoarthritis, left ankle and foot (principal); M19.071 Primary osteoarthritis, right ankle and foot; M85.879 Other specified disorders of bone density and structure, unspecified ankle and foot; M77.41 Metatarsalgia, right foot; M77.42 Metatarsalgia, left foot | CPT/HCPCS: 73610; 73630; 99203; 99204 ==

== ENCOUNTER → 2022-03-03 10:50 | Outpatient (BNVA) | payer MEDICARE, OTHER, SELFPAY | PROVIDERS: PCP Nurse Practitioner; Visit Provider Internal Medicine | DX: M15.4 Erosive (osteo)arthritis (principal); M81.0 Age-related osteoporosis without current pathological fracture; Z79.899 Other long term (current) drug therapy; M85.80 Other specified disorders of bone density and structure, unspecified site | CPT/HCPCS: 36415; 80053; 81001; 82306; 82550; 84100; 85025; 85651; 86140; 99214 ==

== ENCOUNTER 2022-03-18 10:02 | Outpatient (CLI) | payer MEDICARE, OTHER, SELFPAY ==
[2022-03-18 10:15] VITALS: BP 125/77; PULSE 75; RESP 18; TEMP 36.7; O2SAT 98
[2022-03-18] MEDS: denosumab 60 mg SDV SUBCUT (10:31)
[2022-03-18 10:33] VITALS: BP 143/82; PULSE 75; RESP 18; TEMP 36.6; O2SAT 98
== END 2022-03-18 10:03 | disposition home or self-care (01) ==
PROVIDERS: PCP Nurse Practitioner; Visit Provider Internal Medicine
DX: M15.4 Erosive (osteo)arthritis (principal)
CPT/HCPCS: 96372; J0897

== ENCOUNTER 2022-03-29 09:37 | Outpatient (CLI) | payer MEDICARE, OTHER, SELFPAY | END 2022-03-29 09:38 | disposition home or self-care (01) | LOC: RAD 09:40 | PROVIDERS: PCP Nurse Practitioner; Visit Provider Nurse Practitioner | DX: I70.0 Atherosclerosis of aorta (principal); M19.072 Primary osteoarthritis, left ankle and foot; M19.071 Primary osteoarthritis, right ankle and foot; M85.879 Other specified disorders of bone density and structure, unspecified ankle and foot; M77.41 Metatarsalgia, right foot; M77.42 Metatarsalgia, left foot | CPT/HCPCS: 71046; 99213 ==

== ENCOUNTER → 2022-04-13 10:38 | Outpatient (BNVA) | payer MEDICARE, OTHER, SELFPAY | PROVIDERS: PCP Nurse Practitioner; Visit Provider Orthopaedic Surgery | DX: M25.861 Other specified joint disorders, right knee (principal) | CPT/HCPCS: 73560; 73565; 99213 ==

== ENCOUNTER 2022-04-30 12:43 | Outpatient (CLI) | payer MEDICARE, OTHER, SELFPAY ==
--- NOTE | 2022-04-30 13:00 | MR_ITS ---
WS: [id number] MRI LUMBAR SPINE NONCONTRAST HISTORY: G62.9 - Polyneuropathy, unspecified COMPARISON: 04/27/2019 TECHNIQUE: Sagittal and axial multisequence imaging is submitted. Mild straightening of the normal lumbar lordosis. No fractures or marrow edema. Mild disc space narro wing and desiccation. Conus terminates normally at L1-2 disc level. L1-L2: Mild bilateral foraminal narrowing and facet joint disease. L2-L3: Mild ligamentum flavum hypertrophy. Mild foraminal stenosis. L3-L4: Mild annular disc bulging with ligamentum flavum and facet arthritis. Mild bilateral foraminal narrowing. L4-L5: Diffuse mild annular disc bulging. Small RIGHT paracentral disc protrusion. Mild ligamentum fl avum and facet arthritis. Mild bilateral foraminal and subarticular recess encroachment upon the nerv e roots. No high-grade stenosis. Similar to the prior study. L5-S1: Mild disc bulging with no significant stenosis. Nerve root sleeve diverticula posterior to S2 and S3. Paravertebral soft tissues are normal. Elongated liver is probably a Char's lobe extending over a l ength of 19 cm. MR/MR lumbar spine wo con* [id number] IMPRESSION: 1. Mild spondylitic changes throughout the lumbar spine. No high-grade stenosi s. No significant progression since 04/27/2019. 2. Mild foraminal stenosis from L1-2 through L4-5 may be due to short pedicle s.
== END 2022-04-30 12:44 | disposition home or self-care (01) ==
LOC: RAD 12:44
PROVIDERS: PCP Nurse Practitioner; Visit Provider Nurse Practitioner
DX: G62.9 Polyneuropathy, unspecified (principal); M47.896 Other spondylosis, lumbar region; M48.061 Spinal stenosis, lumbar region without neurogenic claudication
CPT/HCPCS: 72148

== ENCOUNTER → 2022-05-18 09:55 | Outpatient (BNVA) | payer MEDICARE, OTHER, SELFPAY | PROVIDERS: PCP Nurse Practitioner; Referring Provider Nurse Practitioner; Visit Provider Orthopaedic Surgery | DX: M51.9 Unspecified thoracic, thoracolumbar and lumbosacral intervertebral disc disorder (principal); M47.816 Spondylosis without myelopathy or radiculopathy, lumbar region | CPT/HCPCS: 72110; 99204 ==

== ENCOUNTER → 2022-05-25 11:44 | Outpatient (BNVA) | payer MEDICARE, SELFPAY | PROVIDERS: PCP Nurse Practitioner; Visit Provider Internal Medicine | DX: Z79.899 Other long term (current) drug therapy (principal); M54.2 Cervicalgia; M15.4 Erosive (osteo)arthritis; M81.0 Age-related osteoporosis without current pathological fracture; Z87.310 Personal history of (healed) osteoporosis fracture | CPT/HCPCS: 72040; 99214 ==

== ENCOUNTER 2022-06-07 11:15 | Outpatient (CLI) | payer MEDICARE, SELFPAY ==
--- NOTE | 2022-06-07 11:35 | MM_ITS ---
WS: [email or web address] Bilateral screening 3D tomosynthesis digital mammogram, 06/07/2022 Clinical Data: SCREENING Comparison: 05/19/2021, 03/06/2020, 10/25/2018, 10/25/2017, 10/14/2016, 09/25/2015, 09/05/2014 09/06/2013, 08/29, 08/24/2011. Findings: The breast parenchymal pattern shows fibroglandular tissue. There is asymmetric tissue in the upper o uter quadrant of the left breast unchanged. No spiculated masses or clustered calcifications are seen . There are no secondary signs of carcinoma. MM/[place] [id number] Impression: 1. Negative bilateral mammogram unchanged. 2. Recommend annual screening mammograms. BIRADS: 1-Negative FOLLOW UP: 1 Year Follow-up The CAD tray checker was used.
== END 2022-06-07 11:16 | disposition home or self-care (01) ==
LOC: RAD 11:17
PROVIDERS: PCP Nurse Practitioner; Visit Provider Nurse Practitioner
DX: Z12.31 Encounter for screening mammogram for malignant neoplasm of breast (principal)
CPT/HCPCS: 77063; 77067

== ENCOUNTER → 2022-06-29 09:04 | Outpatient (BNVA) | payer MEDICARE, SELFPAY | PROVIDERS: PCP Nurse Practitioner; Visit Provider Internal Medicine | DX: M15.4 Erosive (osteo)arthritis (principal); M81.0 Age-related osteoporosis without current pathological fracture; M47.816 Spondylosis without myelopathy or radiculopathy, lumbar region; G62.89 Other specified polyneuropathies; M85.80 Other specified disorders of bone density and structure, unspecified site; Z87.310 Personal history of (healed) osteoporosis fracture | CPT/HCPCS: 99214 ==

== ENCOUNTER 2022-07-02 10:05 | Outpatient (CLI) | payer MEDICARE, SELFPAY ==
--- NOTE | 2022-07-02 10:30 | XR_ITS ---
WS: [email or web address] XR shoulder LT min 2V* [id number] REASON FOR EXAM: M81.0 - Age-related osteoporosis without current patholog... FINDINGS: No fracture or focal bone lesion. Mild narrowing of the acromioclavicular joint with mild subchondral sclerosis. Glenohumeral joint is intact and does not appear to be significantly narrowed. Moderate to significant sclerosis and cystic change in the greater tuberosity of the humerus. XR/XR shoulder LT min 2V* [id number] IMPRESSION: Mild osteoarthritis in the acromioclavicular joint. Moderate to significant rotator cuff tendon arthropathy.
== END 2022-07-02 10:06 | disposition home or self-care (01) ==
LOC: RAD 10:18
PROVIDERS: PCP Nurse Practitioner; Visit Provider Internal Medicine
DX: M81.0 Age-related osteoporosis without current pathological fracture (principal); M12.812 Other specific arthropathies, not elsewhere classified, left shoulder
CPT/HCPCS: 73030

== ENCOUNTER 2022-07-30 14:24 | Outpatient (CLI) | payer MEDICARE, SELFPAY ==
--- NOTE | 2022-07-30 15:15 | USCV_ITS ---
Bridget Amato Age: 71 Gender: F : 1950 Exam Date: 07/30/2022 15:51 Ordering Phys: Dana Bustillo COAL GETTER COAL GETTER Technologist: CT [place] [facility] [place]: dyspnea with exertion Risk Factors: Previous Vascular Surgery: RIGHT LEFT BP: 157.0 / 77.00 BP: 166.0/ 81.00 0 0 Waveform Velocity (cm/s) Velocity (cm/s) Waveform Triphasic 101.4 Iliac Prox 93.5 Triphasic Triphasic 87.9 Iliac Mid 98.5 Triphasic Triphasic 67.3 Iliac Distal 129.0 Biphasic Biphasic 71.4 METER TECHNICIAN 73.4 Biphasic Biphasic 81.7 SFA Prox 101.4 Triphasic Biphasic 69.1 SFA Mid 91.5 Biphasic Triphasic SFA Dist Biphasic 85.7 70.3 Biphasic 44.7 POP 44.2 Biphasic Monophasic 25.2 TOPLINE BEADING MACHINE TENDER N/A Biphasic 108.9 DPA 103.7 Biphasic 0.9 LAURO 1.0 FINDINGS Mild diffuse plaque in the iliac and femoral arteries bilaterally. Sluggish flow in the right posterior tibial artery. Normal Doppler flow signals in the left posterior tibial artery Resting LAURO 0.9 on the right and 1.0 on the left CONCLUSIONS 1. Slightly diminished resting LAURO on the right side of 0.9 suggesting mild peripheral arterial disease. Features of sluggish flow in the posterior tibial artery on this side 2. Normal resting LAURO of 1.0 on the left side with possibly occluded posttibial artery . Dr Luiz Barnett MD [facility] (Electronically Signed) Final Date: 31 July 2022 18:17 S
== END 2022-07-30 14:25 | disposition home or self-care (01) ==
PROVIDERS: PCP Nurse Practitioner; Visit Provider Nurse Practitioner
DX: R06.09 Other forms of dyspnea (principal)
CPT/HCPCS: 93925

== ENCOUNTER → 2022-08-24 14:45 | Outpatient (BNVA) | payer MEDICARE, SELFPAY | PROVIDERS: PCP Nurse Practitioner; Visit Provider Thoracic Surgery (Cardiothoracic Vascular Surgery) | DX: I83.93 Asymptomatic varicose veins of bilateral lower extremities (principal) | CPT/HCPCS: 99203 ==

== ENCOUNTER → 2022-09-02 15:09 | Outpatient (BNVA) | payer MEDICARE, SELFPAY | PROVIDERS: PCP Nurse Practitioner; Visit Provider Internal Medicine | DX: I10 Essential (primary) hypertension (principal); Z96.659 Presence of unspecified artificial knee joint; E03.9 Hypothyroidism, unspecified | CPT/HCPCS: 99214 ==

== ENCOUNTER 2022-09-07 14:42 | Outpatient (CLI) | payer MEDICARE, SELFPAY ==
--- NOTE | 2022-09-07 15:00 | USCV_ITS ---
Bridget Amato Age: 71 Gender: F : 1950 Exam Date: 09/07/2022 15:21 Ordering Phys: Otto Fontaine MD ([email or web address] [place] Technologist: Jcarlos Lott Exam Location: [facility] – [place] Indication: HISTORY: PROCEDURES: FINDINGS: There is no evidence of bilateral deep vein thrombosis. No evidence of superficial thrombosis in the bilateral saphenous system. No evidence of reflux was noted in the bilateral deep venous system. There is reflux noted bilaterally at the level of the GSV below knee. No venous reflux noted in the bilateral small saphenous vein. The reflux time at the below-knee segment of the greater saphenous vein was 2.97 seconds on the right and 3.64 seconds on the left. CONCLUSIONS 1. No evidence of DVT in the above-mentioned identifiable veins. 2. Significant venous reflux of greater than 500 ms were noted at the below-knee segments of the greater saphenous veins bilaterally. These venous segments were measuring 0.31 cm on the right side and 0.3 cm on the left side. They were greater than 1 cm deep from the surface. 3. No significant reflux were noted in any other segments of the superficial veins or in the deep veins. Dr Luiz Barnett MD [facility] (Electronically Signed) Final Date: 08 September 2022 09:30 S
== END 2022-09-07 14:43 | disposition home or self-care (01) ==
LOC: RAD 14:54
PROVIDERS: PCP Nurse Practitioner; Visit Provider Thoracic Surgery (Cardiothoracic Vascular Surgery)
DX: M79.605 Pain in left leg (principal)
CPT/HCPCS: 93970

== ENCOUNTER → 2022-09-20 09:32 | Outpatient (BNVA) | payer MEDICARE, SELFPAY | PROVIDERS: PCP Nurse Practitioner; Visit Provider Internal Medicine | DX: M81.0 Age-related osteoporosis without current pathological fracture (principal); M15.4 Erosive (osteo)arthritis; M47.816 Spondylosis without myelopathy or radiculopathy, lumbar region; G60.8 Other hereditary and idiopathic neuropathies | CPT/HCPCS: 36415; 80053; 82306; 85025; 99214 ==

== ENCOUNTER 2022-09-21 09:32 | Oncology outpatient (recurring) (ONCR) | payer MEDICARE, SELFPAY ==
[2022-09-21] MEDS: denosumab 60 mg SDV SUBCUT (09:51)
[2022-09-21 09:56] VITALS: BP 135/75; PULSE 67; RESP 16; TEMP 36.6; O2SAT 97
== END 2022-10-20 23:59 | disposition home or self-care (01) ==
LOC: ONCMED 09:32
PROVIDERS: PCP Nurse Practitioner; Visit Provider Internal Medicine
DX: M15.4 Erosive (osteo)arthritis (principal)
CPT/HCPCS: 96372; J0897

== ENCOUNTER → 2022-10-07 08:06 | Outpatient (BNVA) | payer MEDICARE, SELFPAY | PROVIDERS: PCP Nurse Practitioner; Visit Provider Thoracic Surgery (Cardiothoracic Vascular Surgery) | DX: I87.2 Venous insufficiency (chronic) (peripheral) (principal) | CPT/HCPCS: 99212 ==

== ENCOUNTER → 2022-12-24 09:23 | Outpatient (BNVA) | payer MEDICARE, SELFPAY | PROVIDERS: PCP Nurse Practitioner; Visit Provider Nurse Practitioner Family | DX: I10 Essential (primary) hypertension (principal); M81.0 Age-related osteoporosis without current pathological fracture | CPT/HCPCS: 99213 ==

== ENCOUNTER → 2023-03-23 09:59 | Outpatient (BNVA) | payer MEDICARE, SELFPAY | PROVIDERS: PCP Nurse Practitioner; Visit Provider Nurse Practitioner Family | DX: E55.9 Vitamin D deficiency, unspecified (principal); Z79.899 Other long term (current) drug therapy; E03.9 Hypothyroidism, unspecified; G62.9 Polyneuropathy, unspecified; I10 Essential (primary) hypertension; F41.9 Anxiety disorder, unspecified; I87.2 Venous insufficiency (chronic) (peripheral); D64.9 Anemia, unspecified; Z13.6 Encounter for screening for cardiovascular disorders; M79.604 Pain in right leg; M79.605 Pain in left leg | CPT/HCPCS: 80053; 80061; 81003; 82306; 82728; 83036; 83550; 84443; 85025 ==

== ENCOUNTER → 2023-03-31 10:00 | Outpatient (BNVA) | payer MEDICARE, SELFPAY | PROVIDERS: PCP Nurse Practitioner; Visit Provider Nurse Practitioner Family | DX: M19.012 Primary osteoarthritis, left shoulder (principal); M67.919 Unspecified disorder of synovium and tendon, unspecified shoulder | CPT/HCPCS: 73030 ==

== ENCOUNTER 2023-04-19 06:00 | Outpatient (RCR) | payer MEDICARE, SELFPAY | END 2023-04-21 23:59 | disposition home or self-care (01) | LOC: WPT 06:00 | PROVIDERS: PCP Nurse Practitioner Family; Visit Provider Nurse Practitioner Family | DX: M19.012 Primary osteoarthritis, left shoulder (principal) | CPT/HCPCS: 97110; 97112; 97161; 97530 ==

== ENCOUNTER 2023-04-22 06:00 | Outpatient (RCR) | payer MEDICARE, SELFPAY | END 2023-05-22 23:59 | disposition home or self-care (01) | LOC: WPT 06:00 | PROVIDERS: PCP Nurse Practitioner Family; Visit Provider Nurse Practitioner Family | DX: M19.012 Primary osteoarthritis, left shoulder (principal) | CPT/HCPCS: 97110; 97112; 97530 ==

== ENCOUNTER → 2023-04-26 09:31 | Outpatient (BNVA) | payer MEDICARE, SELFPAY | PROVIDERS: PCP Nurse Practitioner Family; Visit Provider Internal Medicine | DX: M81.0 Age-related osteoporosis without current pathological fracture (principal); M15.4 Erosive (osteo)arthritis; M47.816 Spondylosis without myelopathy or radiculopathy, lumbar region | CPT/HCPCS: 99214 ==

== ENCOUNTER 2023-07-15 12:40 | Outpatient (CLI) | payer MEDICARE, SELFPAY ==
--- NOTE | 2023-07-15 13:07 | MM_ITS ---
WS: [email or web address] BILATERAL 3D TOMOSYNTHESIS DIGITAL SCREENING MAMMOGRAPHY WITH CAD CLINICAL INFORMATION: SCREENING HISTORY: Screening mammogram. No current complaints. COMPARISON: 2022 TECHNIQUE: Bilateral CC and MLO views. FINDINGS: Scattered fibroglandular densities bilaterally. No suspicious focal mass, asymmetry, calcifications, or architectural distortion. No evidence of malignancy. Vascular calcification. IMPRESSION: MM/[place] [id number] BI-RADS: 2-Benign FOLLOW UP: 1 Year Follow-up Recommend return to annual screening mammography.
== END 2023-07-15 12:41 | disposition home or self-care (01) ==
LOC: RAD 12:41
PROVIDERS: PCP Nurse Practitioner Family; Visit Provider Nurse Practitioner Family
DX: Z12.31 Encounter for screening mammogram for malignant neoplasm of breast (principal); R92.323 Mammographic fibroglandular density, bilateral breasts
CPT/HCPCS: 77063; 77067

== ENCOUNTER → 2023-07-27 14:15 | Outpatient (BNVA) | payer MEDICARE, SELFPAY | PROVIDERS: PCP Nurse Practitioner Family; Referring Provider Nurse Practitioner Family; Visit Provider Dermatology | DX: L82.0 Inflamed seborrheic keratosis (principal); L57.0 Actinic keratosis; L98.8 Other specified disorders of the skin and subcutaneous tissue; L72.0 Epidermal cyst; L81.5 Leukoderma, not elsewhere classified | CPT/HCPCS: 17000; 17110; 99203 ==

== ENCOUNTER 2023-08-15 12:12 | Outpatient (CLI) | payer MEDICARE, SELFPAY ==
--- NOTE | 2023-08-15 13:00 | XR_ITS ---
WS: [email or web address] SCREENING DEXA SCAN [place] CLINICAL INFORMATION: M81.0 - Age-related osteoporosis without current patholog... COMPARISON: 2021 FINDINGS: The L1-L4 bone mineral density measures 0.857 g/cm2. This corresponds to a T score score of -2.7 and Z score of -1.2. Left femoral neck bone mineral density measures 0.727 g/cm2. This corresponds to a T score of -2.2 an d Z score of -0.8. Right femoral neck bone mineral density measures 0.721 g/cm2. This corresponds to a T score -2.3of an d Z score of -0.8. Mean femoral neck bone mineral density measures 0.724 g/cm2. This corresponds to a T score of -2.3 an d Z score of -0.8. IMPRESSION: Osteoporosis lumbar spine. Osteopenia femoral necks. Patient's FRAX calculated 10 year probability for major osteoporotic fracture is 24.0% and osteoporot ic hip fracture is 5.7%. Bone mineral density lumbar spine decreased -4.6% Bone mineral density femoral necks increased 1.3%
== END 2023-08-15 12:13 | disposition home or self-care (01) ==
LOC: RAD 12:13
PROVIDERS: PCP Nurse Practitioner Family; Visit Provider Internal Medicine
DX: M81.0 Age-related osteoporosis without current pathological fracture (principal); M85.88 Other specified disorders of bone density and structure, other site
CPT/HCPCS: 77080

== ENCOUNTER → 2023-09-01 13:39 | Outpatient (BNVA) | payer MEDICARE, SELFPAY | PROVIDERS: PCP Nurse Practitioner Family; Visit Provider Internal Medicine | DX: I10 Essential (primary) hypertension (principal); Z96.659 Presence of unspecified artificial knee joint; E03.9 Hypothyroidism, unspecified; R07.9 Chest pain, unspecified | CPT/HCPCS: 99214 ==

== ENCOUNTER 2023-09-20 07:31 | Outpatient (CLI) | payer MEDICARE, SELFPAY ==
[2023-09-20 07:41] VITALS: BMI 26.1
--- NOTE | 2023-09-20 07:47 | ECG_ITS ---
[facility] Test Date: 2023-09-20 Pat Name: Bridget Amato Department: Room: Gender: Female Manager Target: : 1950 Requested By: Dileep Hui Order Number: [id number] Belinda MD: Dileep Hui M.D. Interpretive Statements NAME OF STUDY: LEXISCAN SESTAMIBI STRESS TEST INDICATION: [Chest Pain; Shortness of Breath] Procedure: At the baseline, the blood pressure was 134/68 mmHg with a heart rate of 61 bpm. The electrocardiogram showed normal sinus rhythm, normal axis with normal ST and T's. The Lexiscan was infused over a period of 20 seconds. A total of 0.4 mg of Lexiscan was infused. The stress phase was continued for a total of 5 minutes. Heart rate was at the end of stress phase was 85 bpm and a blood pressure of 121/45 mmHg. The EKG at the peak infusion revealed normal sinus rhythm with no significant ST-T wave changes. Sestamibi was injected 20 seconds after the Lexiscan infusion. Blood pressure at the end of recovery phase was 121/43 mmHg with a heart rate of 78 bpm. Conclusion: 1. Normal EKG response to Lexiscan infusion 2. No Lexiscan induced chest pain or cardiac arrhythmia. 3. Normal blood pressure and heart rate response. 4. Sestamibi/sestamibi perfusion scan pending; see separate report. Electronically Signed On 10-10-2023 18:39:22 CDT by Dileep Hui M.D. [id number]
--- NOTE | 2023-09-20 07:48 | NMCV_ITS ---
NM shea perf SPECT r/s* [id number] Bridget Amato Age: 72 Gender: F : 1950 Exam Date: 09/20/2023 08:35 Ordering Phys: Dileep Hui M.D ([email or web address]) Technologist: THUY Thakkar Exam Location: [facility] Indications: CHEST PAIN STRESS TEST Please see separate stress test report in [facility] for full findings IMAGE PROTOCOL Rest/Stress 1 Lexiscan Day Radiopharmaceutical Dose (mCi) Administration Site Administered by Rest: Tc-99m 10.7 IV THUY Gutierrez Sestamibi Stress:Tc-99m 32.6 IV THUY Gutierrez Sestamibi Rest: 20-Sep-2023 60 Discovery 630 Stress: 20-Sep-2023 30 Discovery 630 0.4mg Lexiscan. Images obtained in supine and prone position. SPECT RESULTS Technical Quality: Excellent Raw Data Analysis: Normal Image Corrections: No attenuation or motion correction applied Summed Stress Score: 0 Summed Rest Score: 5 Summed Difference Score: 0 PERFUSION FINDINGS SPECT images demonstrate homogeneous tracer distribution throughout the myocardium. FUNCTIONAL RESULTS (calculated via Gated SPECT) Stress Image LV EF (%): 72 Stress EDV (mL):105 TID: 0.95 Stress ESV (mL):29 FUNCTIONAL FINDINGS: There is normal left ventricular systolic function. IMPRESSIONS 1. Normal myocardial perfusion imaging with no evidence of ischemia 2. LV systolic function is normal Dileep Hui MD (Electronically Signed) Final Date: 22 Sep 2023 10:47 S
[2023-09-20] MEDS: regadenoson 0.4 Mg/5 ml Syringe 0.400000000000000022 MG IVP (09:22)
[2023-09-20 09:41] VITALS: BP 133/64; PULSE 62
== END 2023-09-20 07:32 | disposition home or self-care (01) ==
PROVIDERS: PCP Nurse Practitioner Family; Visit Provider Internal Medicine
DX: R07.9 Chest pain, unspecified (principal); R06.02 Shortness of breath
CPT/HCPCS: 36415; 78452; 93017; 96374; A9500; J2785

== ENCOUNTER → 2023-10-11 14:31 | Outpatient (BNVA) | payer MEDICARE, SELFPAY | PROVIDERS: PCP Nurse Practitioner Family; Visit Provider Dermatology | DX: L82.0 Inflamed seborrheic keratosis (principal); L57.0 Actinic keratosis; L81.4 Other melanin hyperpigmentation; L57.8 Other skin changes due to chronic exposure to nonionizing radiation | CPT/HCPCS: 17000; 17110; 99213 ==

== ENCOUNTER → 2023-11-03 09:14 | Outpatient (BNVA) | payer MEDICARE, SELFPAY | PROVIDERS: PCP Nurse Practitioner Family; Visit Provider Nurse Practitioner Family | DX: I10 Essential (primary) hypertension (principal); E03.9 Hypothyroidism, unspecified; E55.9 Vitamin D deficiency, unspecified; D64.9 Anemia, unspecified; F41.9 Anxiety disorder, unspecified; Z79.899 Other long term (current) drug therapy | CPT/HCPCS: 80053; 82306; 82607; 84443; 85025; 85651; 86140 ==

== ENCOUNTER → 2023-12-01 09:45 | Outpatient (CLI) | payer MEDICARE, SELFPAY ==
--- NOTE | 2023-12-01 10:15 | MR_ITS ---
WS: [email or web address] MRI CERVICAL SPINE NONCONTRAST TECHNIQUE: Sagittal T1, T2 and STIR imaging. Axial T2, gradient, and fiesta imaging. CLINICAL INFORMATION: M54.2 - Cervicalgia COMPARISON: None. FINDINGS: Straightening of the normal cervical lordosis. Mild disc bulging worse at C7-T1. No high-grade centra l canal narrowing. Cord signal is normal. C2-C3: Normal. C3-C4: Mild facet arthropathy worse on the LEFT. Mild LEFT foraminal narrowing. C4-C5: Disc osteophyte complex with endplate ridging. Mild facet arthropathy. Mild LEFT foraminal cady rowing. C5-C6: Disc osteophyte complex with endplate ridging. Mild LEFT foraminal narrowing. Mild facet arthr opathy. C6-C7: Disc osteophyte complex with endplate ridging. Mild to moderate LEFT and no significant RIGHT foraminal narrowing. Mild facet arthropathy. C7-T1: Disc osteophyte complex with endplate ridging. LEFT paracentral and subarticular disc protrusi on. Moderate LEFT foraminal narrowing. Spinal canal and RIGHT foramen are patent. T1-T2: LEFT paracentral and subarticular disc protrusion at this level. Mild LEFT foraminal narrowing . Spinal canal is patent. Visualized brain stem structures: Normal. Prevertebral soft tissues: Normal. Numerous small T2 hyperintense lesions in the RIGHT greater than LEFT thyroid. This can followed up w [facility] thyroid ultrasound. MR/MR cervical spin wo con* [id number] IMPRESSION: 1. Straightening of the normal cervical lordosis. Cord signal is normal. No si gnificant central canal narrowing. 2. Small LEFT paracentral and subarticular protrusion C7-T1 with moderate LEFT foraminal narrowing. Spinal canal is patent. 3. Small LEFT paracentral protrusion T1-2 with mild LEFT foraminal narrowing. 4. Mild to moderate LEFT bony foraminal narrowing C6-7.
== END | disposition home or self-care (01) ==
LOC: RAD 09:44
PROVIDERS: PCP Nurse Practitioner Family; Visit Provider Nurse Practitioner Family
DX: M50.30 Other cervical disc degeneration, unspecified cervical region (principal); R51.9 Headache, unspecified; M47.812 Spondylosis without myelopathy or radiculopathy, cervical region; M48.02 Spinal stenosis, cervical region; M25.78 Osteophyte, vertebrae; M50.23 Other cervical disc displacement, cervicothoracic region; M48.03 Spinal stenosis, cervicothoracic region; M51.24 Other intervertebral disc displacement, thoracic region; M48.04 Spinal stenosis, thoracic region; E07.89 Other specified disorders of thyroid
CPT/HCPCS: 72141

== ENCOUNTER → 2023-12-28 14:05 | Outpatient (BNVA) | payer MEDICARE, SELFPAY | PROVIDERS: PCP Nurse Practitioner Family; Visit Provider Dermatology | DX: L30.9 Dermatitis, unspecified (principal) | CPT/HCPCS: 99214 ==

== ENCOUNTER → 2024-01-11 10:40 | Outpatient (BNVA) | payer MEDICARE, SELFPAY | PROVIDERS: PCP Nurse Practitioner Family; Visit Provider Nurse Practitioner Family | DX: Z79.899 Other long term (current) drug therapy (principal); M81.0 Age-related osteoporosis without current pathological fracture | CPT/HCPCS: 82040; 82306; 82310; 82565 ==

== ENCOUNTER → 2024-01-12 14:34 | Outpatient (BNVA) | payer MEDICARE, SELFPAY | PROVIDERS: PCP Nurse Practitioner Family; Visit Provider Dermatology | DX: L30.9 Dermatitis, unspecified (principal) | CPT/HCPCS: 99214 ==

== ENCOUNTER 2024-01-17 06:00 | Outpatient (RCR) | payer MEDICARE, SELFPAY | END 2024-01-21 18:00 | disposition home or self-care (01) | LOC: WPT 06:00 | PROVIDERS: PCP Nurse Practitioner Family; Visit Provider Nurse Practitioner Family | DX: M54.2 Cervicalgia (principal); M54.50 Low back pain, unspecified | CPT/HCPCS: 97110; 97161 ==

== ENCOUNTER 2024-01-22 06:00 | Outpatient (RCR) | payer MEDICARE, SELFPAY | END 2024-02-20 23:59 | disposition home or self-care (01) | LOC: WPT 06:00 | PROVIDERS: PCP Nurse Practitioner Family; Visit Provider Nurse Practitioner Family | DX: M54.2 Cervicalgia (principal); M54.50 Low back pain, unspecified | CPT/HCPCS: 97110; 97112; 97140; 97530 ==

== ENCOUNTER 2024-02-13 14:47 | Oncology outpatient (recurring) (ONCR) | payer MEDICARE, SELFPAY ==
[2024-02-13] MEDS: denosumab 60 mg SDV SUBCUT (15:09)
== END 2024-02-20 23:59 | disposition home or self-care (01) ==
LOC: ONCMED 14:48
PROVIDERS: PCP Nurse Practitioner Family; Visit Provider Internal Medicine Rheumatology
DX: Z79.899 Other long term (current) drug therapy; M85.879 Other specified disorders of bone density and structure, unspecified ankle and foot
CPT/HCPCS: 96372; J0897

== ENCOUNTER 2024-02-21 06:30 | Outpatient (RCR) | payer MEDICARE, SELFPAY | END 2024-03-22 23:59 | disposition home or self-care (01) | LOC: WPT 06:30 | PROVIDERS: PCP Nurse Practitioner Family; Visit Provider Nurse Practitioner Family | DX: M54.2 Cervicalgia (principal); M54.50 Low back pain, unspecified | CPT/HCPCS: 97110; 97112; 97140; 97530 ==

== ENCOUNTER → 2024-03-14 14:10 | Outpatient (BNVA) | payer MEDICARE, SELFPAY | PROVIDERS: PCP Nurse Practitioner Family; Visit Provider Internal Medicine Rheumatology | DX: Z79.899 Other long term (current) drug therapy (principal); M81.0 Age-related osteoporosis without current pathological fracture; M15.4 Erosive (osteo)arthritis | CPT/HCPCS: 99214 ==

== ENCOUNTER 2024-03-22 10:57 | Oncology outpatient (recurring) (ONCR) | payer MEDICARE, SELFPAY ==
--- NOTE | 2024-03-22 11:15 | US_ITS ---
WS: [email or web address] THYROID ULTRASOUND HISTORY: R79.89 - Other specified abnormal findings of blood chemi... COMPARISON: None available. Right lobe: 2.1 cm x 2.8 cm x 5.6 cm (w x ap x l). Volume: 15.9 cm3. Moderately enlarged heterogeneous thyroid. Mild increased vascularity. The entire gland is enlarged a nd lobulated but no discrete mass. There are a few small colloid cysts scattered within the gland. Left lobe: 1.5 cm x 2.2 cm x 5.3 cm (w x ap x l). Volume: 7.9 cm3. Slightly enlarged gland. Mild heterogeneity throughout the gland but no nodule. Isthmus: 0.4 cm. US/US thyroid [id number] IMPRESSION: Enlarged heterogeneous thyroid. Slightly greater enlargement of the RIGHT lobe. Heterogeneity but no well-defined mass.
== END 2024-03-22 23:59 | disposition home or self-care (01) ==
LOC: RAD 10:58 → ONCMED 15:35
PROVIDERS: PCP Nurse Practitioner Family; Visit Provider Nurse Practitioner Family
DX: R79.89 Other specified abnormal findings of blood chemistry (principal); E03.9 Hypothyroidism, unspecified; E04.9 Nontoxic goiter, unspecified
CPT/HCPCS: 76536

== ENCOUNTER → 2024-04-16 09:29 | Outpatient (BNVA) | payer MEDICARE, SELFPAY | PROVIDERS: PCP Nurse Practitioner Family; Referring Provider Nurse Practitioner Family; Visit Provider Internal Medicine | DX: F41.9 Anxiety disorder, unspecified (principal); E03.9 Hypothyroidism, unspecified; E04.9 Nontoxic goiter, unspecified | CPT/HCPCS: 36415; 84439; 84443; 86376; 86800 ==

== ENCOUNTER → 2024-06-13 10:56 | Outpatient (BNVA) | payer MEDICARE, SELFPAY | PROVIDERS: PCP Nurse Practitioner Family; Visit Provider Nurse Practitioner Family | DX: M15.4 Erosive (osteo)arthritis (principal); M17.12 Unilateral primary osteoarthritis, left knee | CPT/HCPCS: 73562 ==

== ENCOUNTER → 2024-06-27 12:51 | Outpatient (BNVA) | payer MEDICARE, SELFPAY | PROVIDERS: PCP Nurse Practitioner Family; Visit Provider Student in an Organized Health Care Education/Training Program | DX: M25.562 Pain in left knee (principal); G89.29 Other chronic pain; Z96.651 Presence of right artificial knee joint; M17.12 Unilateral primary osteoarthritis, left knee | CPT/HCPCS: 73560; 73565 ==

== ENCOUNTER 2024-06-27 14:36 | Outpatient (CLI) | payer MEDICARE, SELFPAY | END 2024-06-27 14:37 | disposition home or self-care (01) | LOC: SPT 14:36 | PROVIDERS: PCP Nurse Practitioner Family; Visit Provider Student in an Organized Health Care Education/Training Program | DX: Z46.89 Encounter for fitting and adjustment of other specified devices (principal); G89.29 Other chronic pain; M25.562 Pain in left knee; M17.12 Unilateral primary osteoarthritis, left knee | CPT/HCPCS: L1851 ==

== ENCOUNTER → 2024-07-18 10:12 | Outpatient (BNVA) | payer MEDICARE, SELFPAY | PROVIDERS: PCP Nurse Practitioner Family; Visit Provider Physician Assistant | DX: M25.562 Pain in left knee (principal); G89.29 Other chronic pain; M17.12 Unilateral primary osteoarthritis, left knee; Z96.651 Presence of right artificial knee joint | CPT/HCPCS: 20610; 99213; J7318 ==

== ENCOUNTER 2024-07-25 10:47 | Outpatient (CLI) | payer MEDICARE, SELFPAY ==
--- NOTE | 2024-07-25 11:00 | MM_ITS ---
WS: [email or web address] BILATERAL SCREENING DIGITAL TOMOSYNTHESIS MAMMOGRAM WITH CAD HISTORY: SCREENING COMPARISON: 07/15/2023, 06/07/2022, 05/19/2021 Bilateral CC and MLO views with tomosynthesis and synthetic mammography submitted. Computer aided detection analyzed. Breast composition: There are scattered areas of fibroglandular density. No suspicious masses, microcalcifications or architectural distortion. Scattered asymmetric densities throughout the LEFT breast. These are stable over multiple prior years. No suspicious mass or grouping of calcifications. MM/MM scr tomosynthesis [id number] IMPRESSION: BI-RADS: 2 - Benign. FOLLOW UP: 1 Year Follow-up
== END 2024-07-25 10:48 | disposition home or self-care (01) ==
LOC: MOBLMAM 10:48
PROVIDERS: PCP Nurse Practitioner Family; Visit Provider Nurse Practitioner Family
DX: Z12.31 Encounter for screening mammogram for malignant neoplasm of breast (principal); R92.323 Mammographic fibroglandular density, bilateral breasts; N64.89 Other specified disorders of breast
CPT/HCPCS: 77063; 77067

== ENCOUNTER → 2024-07-26 13:08 | Outpatient (BNVA) | payer MEDICARE, SELFPAY | PROVIDERS: PCP Nurse Practitioner Family; Visit Provider Nurse Practitioner Family | DX: L81.4 Other melanin hyperpigmentation (principal); L81.5 Leukoderma, not elsewhere classified; D18.01 Hemangioma of skin and subcutaneous tissue; L57.8 Other skin changes due to chronic exposure to nonionizing radiation; L82.0 Inflamed seborrheic keratosis; Z78.9 Other specified health status; R20.8 Other disturbances of skin sensation; L29.89 Other pruritus; L57.0 Actinic keratosis | CPT/HCPCS: 17000; 17110; 99213 ==

== ENCOUNTER → 2024-08-14 10:51 | Outpatient (BNVA) | payer MEDICARE, SELFPAY | PROVIDERS: PCP Nurse Practitioner Family; Visit Provider Nurse Practitioner Family | DX: D64.9 Anemia, unspecified (principal); S10.96XA Insect bite of unspecified part of neck, initial encounter; W57.XXXA Bitten or stung by nonvenomous insect and other nonvenomous arthropods, initial encounter | CPT/HCPCS: 82607; 83550; 86003; 86008 ==

== ENCOUNTER 2024-08-21 05:00 | Outpatient (RCR) | payer MEDICARE, SELFPAY | END 2024-09-19 23:59 | disposition home or self-care (01) | LOC: WPT 05:00 | PROVIDERS: Visit Provider Nurse Practitioner Family | DX: R53.1 Weakness (principal); R29.6 Repeated falls | CPT/HCPCS: 97110; 97112; 97162; 97530 ==

== ENCOUNTER → 2024-09-12 09:20 | Outpatient (BNVA) | payer MEDICARE, SELFPAY | PROVIDERS: PCP Nurse Practitioner Family; Visit Provider Internal Medicine | DX: I10 Essential (primary) hypertension (principal); R06.00 Dyspnea, unspecified; E03.9 Hypothyroidism, unspecified | CPT/HCPCS: 99214 ==

== ENCOUNTER 2024-09-20 06:00 | Outpatient (RCR) | payer MEDICARE, SELFPAY | END 2024-10-20 23:59 | disposition home or self-care (01) | LOC: WPT 06:00 | PROVIDERS: PCP Nurse Practitioner Family; Visit Provider Nurse Practitioner Family | DX: R29.6 Repeated falls (principal) | CPT/HCPCS: 97110; 97112; 97140; 97530 ==

== ENCOUNTER → 2024-09-24 14:59 | Outpatient (BNVA) | payer MEDICARE, SELFPAY | PROVIDERS: PCP Nurse Practitioner Family; Visit Provider Podiatrist Foot & Ankle Surgery | DX: M21.70 Unequal limb length (acquired), unspecified site (principal) | CPT/HCPCS: 77073 ==

== ENCOUNTER → 2024-10-30 12:00 | Outpatient (BNVA) | payer MEDICARE, SELFPAY | PROVIDERS: PCP Nurse Practitioner Family; Referring Provider Podiatrist Foot & Ankle Surgery; Visit Provider Psychiatry & Neurology Neurology | DX: M21.372 Foot drop, left foot (principal); R29.898 Other symptoms and signs involving the musculoskeletal system | CPT/HCPCS: 95885; 95910 ==

== ENCOUNTER → 2024-11-12 14:02 | Outpatient (BNVA) | payer MEDICARE, SELFPAY | PROVIDERS: PCP Nurse Practitioner Family; Visit Provider Podiatrist Foot & Ankle Surgery | DX: R29.898 Other symptoms and signs involving the musculoskeletal system (principal); M54.16 Radiculopathy, lumbar region; M79.672 Pain in left foot; M21.372 Foot drop, left foot | CPT/HCPCS: 99214 ==

== ENCOUNTER → 2024-11-15 13:58 | Outpatient (BNVA) | payer MEDICARE, SELFPAY | PROVIDERS: PCP Nurse Practitioner Family; Visit Provider Orthopaedic Surgery | DX: M47.816 Spondylosis without myelopathy or radiculopathy, lumbar region (principal) | CPT/HCPCS: 72110; 99203 ==

== ENCOUNTER 2024-12-03 09:01 | Outpatient (CLI) | payer MEDICARE, SELFPAY ==
--- NOTE | 2024-12-03 09:30 | MR_ITS ---
WS: [email or web address] MRI LUMBAR SPINE NONCONTRAST HISTORY: back pain, bilateral leg pain. COMPARISON: 04/30/2022 TECHNIQUE: Sagittal and axial multisequence imaging is submitted. Mild curvature and scoliosis thoracic and lumbar spines. Posterior lumbar alignment is normal. No acute fractures. No marrow edema. Very minimal disc space narrowing and desiccation. Conus terminates normally at L1-2 disc level. L1-L2: Mild annular disc bulging. No stenosis centrally. Mild bilateral foraminal stenosis. L2-L3: Mild annular disc bulging with minimal ligamentum flavum and facet arthritis. Mild LEFT foraminal stenosis. L3-L4: Diffuse annular disc bulging with a central disc protrusion. LEFT foraminal disc protrusion. Mild ligamentum flavum and facet arthritis. Mild LEFT foraminal stenosis. L4-L5: Mild annular disc bulge with a RIGHT paracentral disc protrusion. Bilateral small foraminal disc osteophyte complexes. LEFT annular tear. There is mild encroachment upon the traversing L5 nerve roots. Mild bilateral foraminal stenosis. L5-S1: Mild disc bulging and ligamentum flavum and facet arthritis. Very mild foraminal stenosis. Liver is elongated, probably a Char's lobe. Atherosclerosis aorta. MR/MR lumbar spine wo con* [id number] IMPRESSION: 1. No high-grade central or foraminal stenosis. 2. Disc bulging with osteophytic ridging and facet arthritis. 3. Multilevel mild foraminal stenosis as above. Similar to 04/30/2022. No high- grade foraminal stenosis. 4. No marrow edema or fracture.
== END 2024-12-03 09:02 | disposition home or self-care (01) ==
LOC: RAD 09:03
PROVIDERS: PCP Nurse Practitioner Family; Visit Provider Orthopaedic Surgery
DX: M48.061 Spinal stenosis, lumbar region without neurogenic claudication (principal); M51.362 Other intervertebral disc degeneration, lumbar region with discogenic back pain and lower extremity pain; M47.816 Spondylosis without myelopathy or radiculopathy, lumbar region; M47.817 Spondylosis without myelopathy or radiculopathy, lumbosacral region
CPT/HCPCS: 72148

== ENCOUNTER → 2024-12-06 15:00 | Outpatient (BNVA) | payer MEDICARE, SELFPAY | PROVIDERS: PCP Nurse Practitioner Family; Visit Provider Orthopaedic Surgery | DX: M54.16 Radiculopathy, lumbar region (principal) | CPT/HCPCS: 99213 ==

== ENCOUNTER → 2024-12-19 15:01 | Outpatient (BNVA) | payer MEDICARE, SELFPAY | PROVIDERS: PCP Nurse Practitioner Family; Visit Provider Nurse Practitioner Family | DX: Z13.6 Encounter for screening for cardiovascular disorders (principal); I10 Essential (primary) hypertension; I83.93 Asymptomatic varicose veins of bilateral lower extremities; E06.3 Autoimmune thyroiditis; E55.9 Vitamin D deficiency, unspecified; E03.9 Hypothyroidism, unspecified; M16.12 Unilateral primary osteoarthritis, left hip; Z79.899 Other long term (current) drug therapy | CPT/HCPCS: 73502; 80053; 80061; 81003; 82306; 83036; 84439; 84443; 85025 ==

== ENCOUNTER 2024-12-27 14:59 | Outpatient (CLI) | payer MEDICARE, SELFPAY ==
[2024-12-27] MEDS: iohexol 350 mg/mL 500 mL Btl (per mL) PO (16:37)
[2024-12-27] MEDS: iohexol 350 mg/mL 500 mL Btl (per mL) IV (16:38)
--- NOTE | 2024-12-27 16:45 | CT_ITS ---
WS: [id number] CT ABDOMEN AND PELVIS WITH CONTRAST HISTORY: R10.9 - Unspecified abdominal pain TECHNIQUE: Imaging performed of the abdomen and pelvis with IV contrast. Single phase imaging of the abdomen. Coronal and sagittal reformats are submitted. All CT scans at [facility] use at least one of these dose optimization techniques: automated exposure control; mA and/or kV adjustment per patient size (includes targeted exams where dose is matched to clinical indication); or iterative reconstruction. IV CONTRAST: Omnipaque 350; 100 mL IV. Oral contrast: Yes. DLP: 422.94 mGy.cm COMPARISON: None available. Lower thorax: Lung bases are slightly hyperexpanded. Thin linear areas of subsegmental atelectasis at the LEFT lung base and RIGHT middle lobe. No mass or pneumonia. Heart is normal size. No hiatal hernia. Liver/biliary system: Mild hepatomegaly. No mass. Normal portal vein. No intrahepatic duct dilatation. Gallbladder: Normal. No gallstones or wall thickening. No pericholecystic fluid. Pancreas: Normal size pancreas and pancreatic duct. No adjacent inflammation. Spleen: Normal size spleen. No mass or infarct. Adrenal glands: Normal. Right kidney: Normal. Left kidney: Normal. Aorta: Mild atherosclerosis with no aneurysm. Scattered calcified plaque. No stenosis of the mesenteric arteries. Lymphadenopathy: None. Free fluid: None. GI tract: Stomach is not distended. No small bowel obstruction. Prior appendectomy. Patulous cecum. Cecum is distended with fecal material. There is a change in caliber of the colon near the hepatic flexure but no mass identified. There is increased air and fecal material throughout the colon. Mild sigmoid no acute diverticulitis. Abdominal wall: Unremarkable abdominal wall. No hernia. Pelvis: No free fluid or adenopathy within the pelvis. Bones: Degenerative disc disease in the lower lumbar spine. Degenerative air in the SI joints. No destructive bone lesions. CT/CT abdomen pelvis w con* [id number] IMPRESSION: 1. No acute abdominal or pelvic abnormalities are identified. 2. Prior appendectomy. 3. Patulous cecum with increased fecal material. No obstructing pattern. 4. Mild sigmoid diverticulosis without acute diverticulitis. 5. Mild hepatomegaly. 6. Atherosclerosis aorta. No aneurysm.
== END 2024-12-27 15:00 | disposition home or self-care (01) ==
LOC: RAD 15:01
PROVIDERS: PCP Nurse Practitioner Family; Visit Provider Nurse Practitioner Family
DX: K57.30 Diverticulosis of large intestine without perforation or abscess without bleeding (principal); N32.81 Overactive bladder; R16.0 Hepatomegaly, not elsewhere classified; I70.0 Atherosclerosis of aorta
CPT/HCPCS: 74177

== ENCOUNTER → 2025-01-30 07:53 | Outpatient (BNVA) | payer MEDICARE, SELFPAY | PROVIDERS: PCP Nurse Practitioner Family; Visit Provider Physician Assistant | DX: M70.62 Trochanteric bursitis, left hip (principal) | CPT/HCPCS: 99213 ==

== ENCOUNTER → 2025-03-05 15:02 | Outpatient (BNVA) | payer MEDICARE, SELFPAY | PROVIDERS: PCP Nurse Practitioner Family; Visit Provider Podiatrist Foot & Ankle Surgery | DX: M54.16 Radiculopathy, lumbar region (principal); M79.672 Pain in left foot | CPT/HCPCS: 99213 ==

== ENCOUNTER → 2025-03-12 07:47 | Outpatient (BNVA) | payer MEDICARE, SELFPAY | PROVIDERS: PCP Nurse Practitioner Family; Visit Provider Physician Assistant | DX: M70.62 Trochanteric bursitis, left hip (principal) | CPT/HCPCS: 20610; 99213; J3301; J3490; J9999 ==

== ENCOUNTER → 2025-04-05 14:25 | Outpatient (BNVA) | payer MEDICARE, SELFPAY | PROVIDERS: PCP Nurse Practitioner Family; Visit Provider Nurse Practitioner Family | DX: L81.4 Other melanin hyperpigmentation (principal); D18.01 Hemangioma of skin and subcutaneous tissue; L57.8 Other skin changes due to chronic exposure to nonionizing radiation; L57.0 Actinic keratosis | CPT/HCPCS: 17000; 99213 ==

== ENCOUNTER → 2025-04-30 08:29 | Outpatient (BNVA) | payer MEDICARE, SELFPAY | PROVIDERS: PCP Nurse Practitioner Family; Visit Provider Nurse Practitioner Family | DX: I48.0 Paroxysmal atrial fibrillation (principal) | CPT/HCPCS: 93005; 99214 ==